=== PATIENT | female | born 1930 | race Caucasian/White ===

== ENCOUNTER 2016-11-06 13:30 | Inpatient (IN) | payer MEDICARE, OTHER ==
[~2016-11-06] VITALS: Ht 162.6 cm; Wt 44.0 kg
[~2016-11-06 13:30] MED LIST: ACET325T PO; BENA25CA2 PO; BUPR75TA PO; BUSP1TAB PO; CARV6.252 PO; CHOL100025 PO; DIVA250T PO; DONE10TA7 PO; FLOR250C PO; FOSA70TA PO; LISI2.5T3 PO; LORA-373 PO; LORA1TAB12 PO; NORC5TAB PO; OMEP20TA PO; PARO30TA2 PO; SIMV20TA PO; SYMB160A INH; VENTAER INH; ZOFR4TAB PO
[2016-11-06 13:53] VITALS: BP 192/104; PULSE 86; RESP 22; TEMP 97.7; O2SAT 95
--- NOTE | 2016-11-06 14:14 | PD ---
HPI Chief Complaint: Fall Time Seen by Provider: 14:14 Travel History International Travel<30 days: No Contact w/Intl Traveler<30days: No Traveled to known affect area: No History of Present Illness HPI 86-year-old female with a history of hypertension, COPD, hyperlipidemia, CAD, anxiety, depression is brought to the emergency department by EMS from her assisted living facility for evaluation of fall. Per EMS report the patient fell from the side of her bed hitting her head on the side table. Unsure if this was a witnessed fall. Staff reports no loss of consciousness. The patient states that she thinks that she tripped over something causing her to fall. The patient denies any loss of consciousness. She complains of a headache. Possibly aggravated by hitting her head on the table. Denies any relieving factors. She denies any lightheadedness, dizziness, nausea, vomiting , chest pain, shortness of breath, abdominal pain, numbness or tingling, weakness, neck pain, back pain. Denies anticoagulation. PCP is Dr. Paul. No other complaints. PFSH Past Medical History Arthritis: Yes Asthma: No Blood Disorders: No Anxiety: Yes Depression: Yes Cancer: No Cardiovascular Problems: Yes (htn on meds) High Cholesterol: Yes COPD: Yes Diabetes: No Diminished Hearing: No Endocrine: No Gastrointestinal Disorders: No Genitourinary: No Hypertension: Yes Immune Disorder: No Implanted Vascular Access Dvce: No Neurologic: Yes Psychiatric: Yes Reproductive: No Respiratory: Yes (COPD, SMOKER) Immunizations Current: Yes Sleep Apnea: No Tetanus Vaccination: Unknown ?: Not Menopausal: Yes Ovarian Cysts: Yes (RT OOPHERECTOMY FOR SAME) Past Surgical History Appendectomy: Yes Body Medical Devices: PLATES IN ANKLES Joint Replacement: Yes (BILAT HIP ) Pacemaker: No Other Surgery: Yes Social History Alcohol Use: No Tobacco Use: Yes (< 1/2 PPD) Substance Use: No Allergies-Medications (Allergen,Severity, Reaction): Coded Allergies: *MDRO Multi-Drug Resistant Organism (Verified Adverse Reaction, Unknown, 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) Reported Meds & Prescriptions Reported Meds & Active Scripts Active Reported Ensure (Nutritional Supplements) 1 Liq Liq 1 Can PO BID Bupropion HCl 75 Mg Tab 75 Mg PO DAILY Symbicort Inh (Budesonide/Formoterol Fumarate) 160-4.5 Mcg/Act Aero 2 Puff INH Q12HR Fosamax (Alendronate Sodium) 70 Mg Tab 70 Mg PO Q7D Vitamin D3 (Cholecalciferol) 1,000 Unit Chew 1,000 Units PO DAILY Simvastatin 20 Mg Tab 20 Mg PO HS Paroxetine (Paroxetine HCl) 30 Mg Tab 30 Mg PO DAILY Acetaminophen 325 Mg Tab 650 Mg PO Q6HR PRN Lorazepam 0.5 Mg Tab 0.5 Mg PO BID Zofran (Ondansetron HCl) 4 Mg Tab 4 Mg PO Q6HR PRN Ventolin Hfa 18 GM Inh (Albuterol Sulfate) 90 Mcg/Act Aer 1 Puff INH Q12HR PRN Omeprazole 20 Mg Tab 20 Mg PO DAILY [place] (Hydrocodone-Acetaminophen) 5-325 mg Tab 1 Tab PO Q4H PRN Lisinopril 2.5 Mg Tab 2.5 Mg PO DAILY Florastor (Saccharomyces Boulardii) 250 Mg Cap 250 Mg PO BID Donepezil 10 Mg Tab 10 Mg PO HS Benadryl (Diphenhydramine HCl) 25 Mg Cap 25 Mg PO Q6H PRN Divalproex DR (Divalproex Sodium) 250 Mg Tabdr 250 Mg PO Q8HR Buspirone (Buspirone HCl) 7.5 Mg Tab 7.5 Mg PO DAILY Lorazepam 1 Mg Tab 1 Mg PO Q8H PRN Carvedilol 6.25 Mg Tab 6.25 Mg PO BID Review of Systems Except as stated in HPI: all other systems reviewed are Neg Physical Exam Narrative GENERAL: Thin, frail elderly female in no acute distress. SKIN: Warm and dry. Skin tear to bilateral forearms and bilateral knees. HEAD: Normocephalic and atraumatic. There is a contusion to the right forehead. There is swelling and mild deformity noted at the nasal bridge. EYES: No injection, drainage, or hyphema noted. PERRLA. EOMI. ENT: Dried blood in the nasal cavities, but no septal hematoma. No nasal drainage noted. Oropharynx is clear. NECK: Supple and the trachea is midline. CARDIOVASCULAR: Regular rate and rhythm. RESPIRATORY: Breath sounds are equal bilaterally with no accessory muscle use, wheezing, rhonchi, or crackles. GASTROINTESTINAL: Abdomen is soft, non-tender, and nondistended. MUSCULOSKELETAL: No obvious deformities, swelling, cyanosis, or ecchymosis is present throughout the upper and lower extremities. Patient has full range of motion without any signs of neurovascular compromise. BACK: Nontender without any obvious deformities, bony point tenderness, or crepitus noted throughout the thoracic and lumbar vertebrae. NEUROLOGICAL: Awake, alert, and oriented. Normal speech and gait. Cranial nerves are grossly intact. Data Data Last Documented VS Vital Signs Date Time Temp Pulse Resp B/P Pulse Ox O2 Delivery O2 Flow Rate FiO2 11/06/16 13:56 86 95 Nasal Cannula 2 11/06/16 13:53 97.7 22 192/[address] Brain W/O Iv Contrast(Rout) (11/06/16 14:12) Ct Cerv Spine W/O Contrast (11/06/16 14:12) Ct Facial Bones W/O Iv Cont (11/06/16 14:12) Electrocardiogram (11/06/16 14:12) Complete Blood Count With Diff (11/06/16 14:12) Comprehensive Metabolic Panel (11/06/16 14:12) Drug Screen, Random Urine (11/06/16 14:12) Prothrombin Time / Inr (Pt) (11/06/16 14:12) Troponin I (11/06/16 14:12) Urinalysis - C+S If Indicated (11/06/16 14:12) Chest, Single Ap (11/06/16 14:12) Ecg Monitoring (11/06/16 14:12) Iv Access Insert/Monitor (11/06/16 14:12) Cath For Specimen (11/06/16 14:12) Oximetry (11/06/16 14:12) Sodium Chloride 0.9% Flush (Ns Flush) (11/06/16 14:15) Tetanus/Diphtheria Tox Adult (Tetanus/Di (11/06/16 15:30) Sodium Chlorid 0.9% 500 Ml Inj (Ns 500 M (11/06/16 15:30) Admit Order (Ed Use Only) (11/06/16 16:05) Labs Laboratory Tests Test 11/06/16 14:25 White Blood Count 14.8 TH/MM3 Red Blood Count 4.24 MIL/MM3 Hemoglobin 11.8 GM/DL Hematocrit 36.3 % Mean Corpuscular Volume 85.7 FL Mean Corpuscular Hemoglobin 27.8 PG Mean Corpuscular Hemoglobin 32.4 % Concent Red Cell Distribution Width 15.6 % Platelet Count 301 TH/MM3 Mean Platelet Volume 9.4 FL Neutrophils (%) (Auto) 84.9 % Lymphocytes (%) (Auto) 9.0 % Monocytes (%) (Auto) 4.7 % Eosinophils (%) (Auto) 1.2 % Basophils (%) (Auto) 0.2 % Neutrophils # (Auto) 12.6 TH/MM3 Lymphocytes # (Auto) 1.3 TH/MM3 Monocytes # (Auto) 0.7 TH/MM3 Eosinophils # (Auto) 0.2 TH/MM3 Basophils # (Auto) 0.0 TH/MM3 CBC Comment DIFF FINAL Differential Comment Prothrombin Time 11.8 SEC Prothromb Time International 1.1 RATIO Ratio Sodium Level 142 MEQ/L Potassium Level 4.4 MEQ/L Chloride Level 105 MEQ/L Carbon Dioxide Level 25.6 MEQ/L Anion Gap 11 MEQ/L Blood Urea Nitrogen 33 MG/DL Creatinine 1.10 MG/DL Estimat Glomerular Filtration 47 ML/MIN Rate Random Glucose 91 MG/DL Calcium Level 8.6 MG/DL Total Bilirubin 0.4 MG/DL Aspartate Amino Transf 11 U/L (AST/SGOT) Alanine Aminotransferase 9 U/L (ALT/SGPT) Alkaline Phosphatase 97 U/L Troponin I LESS THAN 0.02 NG/ML Total Protein 7.2 GM/DL Albumin 2.7 GM/DL [facility] Medical Decision Making Medical Screen Exam Complete: Yes Emergency Medical Condition: Yes Differential Diagnosis Intracranial hemorrhage versus cervical spine fracture versus minor head injury versus facial fracture versus UTI versus other Narrative Course 86-year-old female presents to the emergency room by EMS for evaluation of fall from her bed and hitting her head on the side table. Patient is afebrile. She is mildly hypertensive but vital signs are stable. No focal neurologic deficits. She does have a large contusion to her right forehead and swelling of her nasal bones. CT of the head, facial bones and cervical spine has been ordered and is pending. IV access is obtained, labs have been drawn and sent. I cleaned and dressed the patient's wounds with antibiotic ointment, Telfa and Aba. The 2 skin tears on her forearms were repaired using Steri-Strips and Dermabond. EKG shows normal sinus rhythm with no acute ST elevations or depressions, lateral ST changes likely secondary to LVH. CBC shows an elevated white blood cell count of 14.8. CMP shows mild renal insufficiency with an elevated creatinine of 1.10, GFR 47, BUN 33. Likely secondary to dehydration. This is an elevation from the patient 's baseline. Troponin is less than 0.02. Coags are unremarkable. CT of cervical spine is negative for any acute abnormalities. Head CT is negative for any acute abnormalities. Maxillofacial CT is negative for any acute abnormalities. Chest x-ray is negative for any acute abnormality. Patient has remained stable and without complaint while here in the emergency department. Her blood pressures come down 165/96. We have been unable to obtain a urine specimen, a catheter urine was performed but no urine was obtained as the patient had a wet brief and had urinated just prior to catheterization. Her labs reveal an acute kidney injury. She is quite weak and will need physical therapy evaluation and likely placement in a rehabilitation fpc facility. Patient will be admitted to medicine service. I discussed the case with my attending physician Dr. Ontiveros who is aware of the patients history, physical examination findings, and treatment plan. Physician Communication Physician Communication I spoke with Dr. Bishop [facility] who agrees to admit the patient to his service. Diagnosis Primary Impression: Acute kidney injury Additional Impressions: Weakness generalized Frequent falls Admitting Information Admitting Physician Requests: Admit Alta Patel Nov 06, 2016 14:14
[2016-11-06] MEDS ORDERED: SODIUM CHLORIDE 0.9% FLUSH 5 ML FLUSH IVF PRN (14:15)
[2016-11-06 14:37] LABS: AUTOMATED NEUTROPHIL # 12.6 TH/MM3 (1.8-7.7); BASOPHIL % 0.2 % (0.0-2.0); EOSINOPHIL # 0.2 TH/MM3 (0-0.4); EOSINOPHIL % 1.2 % (0.0-4.0); HEMATOCRIT 36.3 % (35.0-46.0); LYMPHOCYTE # 1.3 TH/MM3 (1.0-4.8); MEAN CELL VOLUME 85.7 FL (80.0-100.0); MEAN CORPUSCULAR HEMOGLOBIN 27.8 PG (27.0-34.0); MEAN CORPUSCULAR HGB CONC 32.4 % (32.0-36.0); MONO % 4.7 % (0.0-8.0); NEUT % 84.9 % (16.0-70.0); PLATELET COUNT 301 TH/MM3 (150-450); RED BLOOD COUNT 4.24 MIL/MM3 (4.00-5.30); RED CELL DISTRIBUTION WIDTH 15.6 % (11.6-17.2); WHITE BLOOD COUNT 14.8 TH/MM3 (4.0-11.0)
[2016-11-06 14:38] LABS: HEMO FLAGS DIFF FINAL
[2016-11-06 14:44] LABS: CHLORIDE 105 MEQ/L (98-107); POTASSIUM 4.4 MEQ/L (3.5-5.1); SODIUM (NA) 142 MEQ/L (136-145)
[2016-11-06 14:47] LABS: ANION GAP 11 MEQ/L (5-15); BICARBONATE 25.6 MEQ/L (21.0-32.0); BLOOD UREA NITROGEN 33 MG/DL (7-18)
[2016-11-06 14:48] LABS: INTERNATIONAL NORMALIZED RATIO 1.1 RATIO; PROTHROMBIN TIME - PATIENT 11.8 SEC (9.8-11.6)
[2016-11-06 14:50] LABS: ALT (GPT) 9 U/L (10-53); AST (GOT) 11 U/L (15-37); GLOMERULAR FILTRATION RATE 47 ML/MIN (>89)
[2016-11-06 14:52] LABS: TOTAL BILIRUBIN ADULT 0.4 MG/DL (0.2-1.0)
[2016-11-06 14:53] LABS: ALKALINE PHOSPHATASE 97 U/L (45-117)
[2016-11-06] MEDS ORDERED: ENSULIQ PO (14:58)
--- NOTE | 2016-11-06 15:19 | RADHPO ---
EXAM DATE/TIME: 11/06/2016 14:30 [facility] COMPARISON: CT BRAIN W/O CONTRAST, November 06, 2014, 13:35. INDICATIONS : Trauma. Fall. Forehead contusion. RADIATION DOSE: 26.83 CTDIvol (mGy) MEDICAL HISTORY : Cardiovascular disease. Chronic obstructive pulmonary disease. Hypertension. SURGICAL HISTORY : Appendectomy. ENCOUNTER: Initial ACUITY: 1 day PAIN SCALE: 2/10 LOCATION: cranial TECHNIQUE: Multiple contiguous axial images were obtained of the head. Using automated exposure control and adj ustment of the mA and/or kV according to patient size, radiation dose was kept as low as reasonably a chievable to obtain optimal diagnostic quality images. FINDINGS: CEREBRUM: The ventricles are normal for age. No evidence of midline shift, mass lesion, hemorrhage or acute in farction. No extra-axial fluid collections are seen. Stable remote hypodensity in the right basal ga nglia and knee of the internal capsule POSTERIOR FOSSA: The cerebellum and brainstem are intact. The 4th ventricle is midline. The cerebellopontine angle i s unremarkable. EXTRACRANIAL: The visualized portion of the orbits is intact. SKULL: The calvaria is intact. No evidence of skull fracture. Soft tissue swelling is appreciated superfici al calvarium in the right frontal region. Air-fluid in the right frontal sinus as well as opacificati on and mucosal thickening in anterior ethmoid air cells. CONCLUSION: Soft tissue swelling right frontal region with intact calvarium. Stable intracranial examination with no acute abnormality. Findings consistent with frontal and ethmoid sinus disease Keith Ortiz MD on November 06, 2016 at 15:15 Board Certified Radiologist. This report was verified electronically.
--- NOTE | 2016-11-06 15:20 | RADHPO ---
EXAM DATE/TIME: 11/06/2016 14:41 [facility] COMPARISON: CHEST SINGLE AP, April 23, 2016, 9:34. INDICATIONS : Snycope. Fall today MEDICAL HISTORY : Hypertension. Hypercholesterolemia. Chronic obstructive pulmonary disease. Smoker SURGICAL HISTORY : None. ENCOUNTER: Initial ACUITY: 1 day PAIN SCORE: 5/10 LOCATION: Bilateral chest FINDINGS: A single view of the chest demonstrates the lungs to be symmetrically aerated without evidence of mas s, infiltrate or effusion. The lungs are hyperaerated bilaterally. There is chronic interstitial serena nges bilaterally. The cardiomediastinal contours are unremarkable. Old stable fracture involving the proximal left humerus. There is an old left-sided rib fractures. The bony structures appear to be sta ble compared to the prior exam. CONCLUSION: No acute pulmonary infiltrates. Ruddy Hernandez MD on November 06, 2016 at 15:17 Board Certified Radiologist. This report was verified electronically.
--- NOTE | 2016-11-06 15:23 | RADHPO ---
EXAM DATE/TIME: 11/06/2016 14:30 [facility] COMPARISON: No previous studies available for comparison. INDICATIONS : Trauma. Fall. RADIATION DOSE: 26.68 CTDIvol (mGy) MEDICAL HISTORY : Chronic obstructive pulmonary disease. Cardiovascular disease Hypertension. SURGICAL HISTORY : Appendectomy. ENCOUNTER: Initial ACUITY: 1 day PAIN SCALE: 2/10 LOCATION: neck TECHNIQUE: Volumetric scanning of the cervical spine was performed. Multiplanar reconstructions in the sagittal, coronal and oblique axial planes were performed. Using automated exposure control and adjustment o f the mA and/or kV according to patient size, radiation dose was kept as low as reasonably achievable to obtain optimal diagnostic quality images. FINDINGS: Soft tissues reveal extensive vascular calcification in the carotid bulbs and initial segments of the internal carotid arteries. The bony structures are osteopenic and intact with normal alignment no fr acture, compression, subluxation, or destructive change. The odontoid is in the relation of the arch of C1 multilevel degenerative changes are noted disc disease C3-C7 inclusive of uncovertebral hypertr ophy and interspersed posterior lateral mass facet arthritic change. CONCLUSION: Extensive degenerative changes. No acute bony injury. Keith Ortiz MD on November 06, 2016 at 15:18 Board Certified Radiologist. This report was verified electronically.
--- NOTE | 2016-11-06 15:26 | RADHPO ---
EXAM DATE/TIME: 11/06/2016 14:30 [facility] COMPARISON: No previous studies available for comparison. INDICATIONS : Trauma. Fall. Facial abrasions. Nose pain. RADIATION DOSE: 11.44 CTDIvol (mGy) MEDICAL HISTORY : Chronic obstructive pulmonary disease. Cardiovascular disease Hypertension. SURGICAL HISTORY : Appendectomy. ENCOUNTER: Initial ACUITY: 1 day PAIN SCORE: 5/10 LOCATION: facial TECHNIQUE: Volumetric scanning of the facial bones was performed. Using automated exposure control and adjustme nt of the mA and/or kV according to patient size, radiation dose was kept as low as reasonably achiev able to obtain optimal diagnostic quality images. FINDINGS: ORBITS: The orbital and infraorbital osseous structures are intact. The retroconal structures have a normal configuration. No radiopaque foreign bodies are seen. NASAL BONE: The nasal bone and maxillary spine are intact ZYGOMATIC ARCHES: Symmetric without evidence of fracture. SINUSES: There is bilateral frontal and ethmoid sinus disease with mucoperiosteal thickening and/or opacificat ion.. NASAL CAVITY: The nasal septum is intact and midline. The lacrimal ducts are intact. SOFT TISSUES: No radiopaque foreign bodies seen. Soft tissue swelling is noted in the right frontal region. INTRACRANIAL: No intracranial air seen. CRIBIFORM PLATE: Grossly intact. CONCLUSION: Soft tissue swelling superficial right frontal for head region. No acute bony injury. Extensive bilat eral frontal and ethmoid sinus air cell disease. Keith Ortiz MD on November 06, 2016 at 15:22 Board Certified Radiologist. This report was verified electronically.
[2016-11-06] MEDS ORDERED: TETANUS/DIPHTHERIA TOXOID ADULT 0.5 ML VIAL IM ONE (15:30)
[2016-11-06] MEDS ORDERED: SODIUM CHLORID 0.9% 500 ML INJ 500 ML IV ONE (15:30)
[2016-11-06] MEDS ORDERED: SODIUM CHLOR 0.9% 1000 ML INJ 1,000 ML IV SCH (17:28)
[2016-11-06 17:56] VITALS: BP 178/79; PULSE 81; RESP 20; O2SAT 95
[2016-11-06] MEDS ORDERED: ONDANSETRON HCL 4 MG/2 ML VIAL IVP PRN (18:30)
[2016-11-06] MEDS ORDERED: MAGNESIUM HYDROXIDE SUSP 30 ML CUP PO PRN (18:30)
[2016-11-06] MEDS ORDERED: NALOXONE HCL 0.4 MG/ML AMP IV PRN (18:30)
[2016-11-06] MEDS: SODIUM CHLOR 0.9% 1000 ML INJ 1,000 ML IV SCH (18:33)
[2016-11-06 19:00] VITALS: O2SAT 95
[2016-11-06 19:45] VITALS: BP 178/89; PULSE 78; RESP 18; O2SAT 100
[2016-11-06 20:30] VITALS: BP 117/65; PULSE 72; RESP 22; TEMP 98.5; O2SAT 95
[2016-11-06] MEDS ORDERED: ACETAMINOPHEN 500 MG CPLT PO ONE (20:45)
[2016-11-06 22:05] VITALS: BP 115/57; PULSE 70; RESP 17; TEMP 96.6; O2SAT 100
[2016-11-07] VITALS (10 sets, daily range): BP systolic 81–129; BP diastolic 45–88; PULSE 64–84; RESP 18–20; TEMP 95.6–98.1; O2SAT 95–99
[2016-11-07 08:47] LABS: AUTOMATED NEUTROPHIL # 7.4 TH/MM3 (1.8-7.7); BASOPHIL % 0.3 % (0.0-2.0); EOSINOPHIL # 0.1 TH/MM3 (0-0.4); EOSINOPHIL % 0.7 % (0.0-4.0); HEMO FLAGS DIFF FINAL; LYMPHOCYTE # 1.2 TH/MM3 (1.0-4.8); MEAN CELL VOLUME 85.7 FL (80.0-100.0); MEAN CORPUSCULAR HEMOGLOBIN 26.9 PG (27.0-34.0); MEAN CORPUSCULAR HGB CONC 31.4 % (32.0-36.0); MONO % 7.5 % (0.0-8.0); NEUT % 78.5 % (16.0-70.0); PLATELET COUNT 197 TH/MM3 (150-450); RED BLOOD COUNT 3.74 MIL/MM3 (4.00-5.30); RED CELL DISTRIBUTION WIDTH 16.1 % (11.6-17.2); WHITE BLOOD COUNT 9.4 TH/MM3 (4.0-11.0)
[2016-11-07 09:13] LABS: BICARBONATE 23.1 MEQ/L (21.0-32.0); POTASSIUM 3.4 MEQ/L (3.5-5.1)
--- NOTE | 2016-11-07 11:05 | HHI.HP ---
[facility] Service [facility] Primary Care Physician Tootie Paul MD Admission Diagnosis ADALID, Weakness, Frequent Falls Diagnoses: (1) Frequent falls (2) Acute kidney injury (3) Leukocytosis (4) Benign hypertension (5) COPD (chronic obstructive pulmonary disease) (6) Hyperlipidemia Chief Complaint: fall Travel History International Travel<30 Days: No Contact w/Intl Traveler <30 Da: No Traveled to Known Affected Are: No History of Present Illness 86 year-old female with a history of hypertension, COPD, hyperlipidemia and a resident [facility] a local [facility] was brought yesterday to the ED by EMS for evaluation of fall unsure whether it was witnessed . Per EMS note, patient fell from decide offered bed hitting her head on that side. However, patient states she tripped over something causing her to fall. There was no loss of consciousness. Head CT and maxillofacial CT the ED revealed Soft tissue swelling superficial right frontal for head region and no other findings.Although on arrival patient complained of headaches, she denies any since this morning. 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) Family History Due to patient's advanced age, family history not relevant in this case Social History She is currently a [facility] at [facility] Alcohol Use: No Tobacco Use: Yes (< 1/2 PPD) Substance Use: No Physical Exam Vital Signs Vital Signs Date Time Temp Pulse Resp B/P Pulse Ox O2 Delivery O2 Flow Rate FiO2 11/07/16 08:00 95.6 73 18 128/60 96 11/07/16 04:00 96.7 70 20 124/88 99 11/07/16 00:23 96.4 70 20 81/45 99 11/06/16 22:05 96.6 70 17 115/57 100 11/06/16 20:30 98.5 72 22 117/65 95 Nasal Cannula 2 11/06/16 19:45 78 18 178/89 100 Nasal Cannula 2 11/06/16 19:00 95 Nasal Cannula 2.00 11/06/16 17:56 81 20 178/79 95 Nasal Cannula 2 11/06/16 17:56 95 Nasal Cannula 2 11/06/16 13:56 86 95 Nasal Cannula 2 11/06/16 13:53 97.7 86 22 192/104 95 Physical Exam GENERAL: This is a well-nourished, well-developed patient, in no apparent distress. SKIN: Multiple skin excoriation to bilateral arms, bilateral lower extremities HEAD: Atraumatic. Normocephalic. No temporal or scalp tenderness. EYES: Pupils equal round and reactive. Extraocular motions intact. No scleral icterus. No injection or drainage. ENT: Nose without bleeding, purulent drainage or septal hematoma. Throat without erythema, tonsillar hypertrophy or exudate. Uvula midline. Airway patent. NECK: Trachea midline. No JVD or lymphadenopathy. Supple, nontender, no meningeal signs. CARDIOVASCULAR: Regular rate and rhythm with II/ DAVID RESPIRATORY: Clear to auscultation. Breath sounds equal bilaterally. No wheezes , rales, or rhonchi. GASTROINTESTINAL: Abdomen soft, non-tender, nondistended. No hepato-splenomegaly , or palpable masses. No guarding. MUSCULOSKELETAL: Extremities without clubbing, cyanosis, or edema. No joint tenderness, effusion, or edema noted. No calf tenderness. Negative Homans sign bilaterally. NEUROLOGICAL: Awake and alert. Cranial nerves II through XII intact. Motor and sensory grossly within normal limits. Five out of 5 muscle strength in all muscle groups. Normal speech. Laboratory Laboratory Tests Test 11/06/16 11/07/16 14:25 08:12 White Blood Count 14.8 9.4 Red Blood Count 4.24 3.74 Hemoglobin 11.8 10.0 Hematocrit 36.3 32.0 Mean Corpuscular Volume 85.7 85.7 Mean Corpuscular Hemoglobin 27.8 26.9 Mean Corpuscular Hemoglobin 32.4 31.4 Concent Red Cell Distribution Width 15.6 16.1 Platelet Count 301 197 Mean Platelet Volume 9.4 9.2 Neutrophils (%) (Auto) 84.9 78.5 Lymphocytes (%) (Auto) 9.0 13.0 Monocytes (%) (Auto) 4.7 7.5 Eosinophils (%) (Auto) 1.2 0.7 Basophils (%) (Auto) 0.2 0.3 Neutrophils # (Auto) 12.6 7.4 Lymphocytes # (Auto) 1.3 1.2 Monocytes # (Auto) 0.7 0.7 Eosinophils # (Auto) 0.2 0.1 Basophils # (Auto) 0.0 0.0 CBC Comment DIFF FINAL DIFF FINAL Differential Comment Prothrombin Time 11.8 Prothromb Time International 1.1 Ratio Sodium Level 142 141 Potassium Level 4.4 3.4 Chloride Level 105 107 Carbon Dioxide Level 25.6 23.1 Anion Gap 11 11 Blood Urea Nitrogen 33 29 Creatinine 1.10 0.94 Estimat Glomerular Filtration 47 57 Rate Random Glucose 91 66 Calcium Level 8.6 8.0 Total Bilirubin 0.4 Aspartate Amino Transf 11 (AST/SGOT) Alanine Aminotransferase 9 (ALT/SGPT) Alkaline Phosphatase 97 Troponin I LESS THAN 0.02 Total Protein 7.2 Albumin 2.7 Result Diagram: 11/07/16 0812 11/07/16 0812 Imaging Last Impressions Maxillofacial CT 11/06/16 141 Signed Impressions: Service Date/Time: Sunday, November 06, 2016 14:30 - CONCLUSION: Soft tissue swelling superficial right frontal for head region. No acute bony injury. Extensive bilateral frontal and ethmoid sinus air cell disease. Keith Ortiz MD Head CT 11/06/16 141 Signed Impressions: Service Date/Time: Sunday, November 06, 2016 14:30 - CONCLUSION: Soft tissue swelling right frontal region with intact calvarium. Stable intracranial examination with no acute abnormality. Findings consistent with frontal and ethmoid sinus disease Keith Ortiz MD Chest X-Ray 11/06/16 141 Signed Impressions: Service Date/Time: Sunday, November 06, 2016 14:41 - CONCLUSION: No acute pulmonary infiltrates. Ruddy Hernandez MD Cervical Spine CT 11/06/16 141 Signed Impressions: Service Date/Time: Sunday, November 06, 2016 14:30 - CONCLUSION: Extensive degenerative changes. No acute bony injury. Keith Ortiz MD Assessment and Plan Problem List: (1) Frequent falls ICD Code: R29.6 Status: Acute (2) COPD (chronic obstructive pulmonary disease) ICD Code: J44.9 Status: Chronic (3) Benign hypertension ICD Code: I10 Status: Chronic (4) Leukocytosis ICD Code: D72.829 Status: Acute Assessment and Plan 86-year-old female with Multiple falls: Status post mechanical fall 11/06/16; head CT and maxillofacial CT noted and reviewed by me with finding of Soft tissue swelling superficial right frontal for head region otherwise unremarkable .Place for precaution. manager lvn consulted for arrangement to discharge to SNF as opposed to returning back to [facility] when medically stable. Check UA and treat accordingly. PT consult to treat and eval Leukocytosis: Chest x-ray noted and reviewed by me without any cardio pulmonary disease, will check UA and treat accordingly-now resolved Multiple scans excoriations: Currently afebrile we'll hold on starting antibiotics, continue wound care with bacitracin. Hypokalemia: Replace electrolyte and monitor Mild acute renal failure: Prerenal secondary to dehydration, resolved with gentle IV fluid hydration and monitor BUN and creatinine. History of COPD: No current exacerbation, resume Symbicort and starts DuoNeb when necessary and advise on tobacco cessation Hypertension: Resume home medication including Coreg and lisinopril with holding per meter Anxiety/depression: Resume outpatient medications Dementia: Resume Aricept DVT prophylaxis: Bilateral SCDs Code Status DO NOT RESUSCITATE Discussed Condition With Patient Physician Certification 2 Midnight Certification Type: Admission for Inpatient Services Order for Inpatient Services The services are ordered in accordance with Medicare regulations or non- Medicare payer requirements, as applicable. In the case of services not specified as inpatient-only, they are appropriately provided as inpatient services in accordance with the 2-midnight benchmark. Estimated LOS (days): 2 days is the estimated time the patient will need to remain in the hospital, assuming treatment plan goals are met and no additional complications. Post-Hospital Plan: Not yet determined Bruce Hernandez MD Nov 07, 2016 11:05
[2016-11-07] MEDS ORDERED: LORazepam 1 MG TAB PO PRN (11:15)
[2016-11-07] MEDS ORDERED: ENALAPRILAT 1.25 MG/ML VIAL IV PUSH PRN (11:15)
[2016-11-07] MEDS ORDERED: PILL SPLITTER OTHER PRN (11:45)
[2016-11-07] MEDS ORDERED: POTASSIUM CHLORIDE 25 MEQ EFFERVESCENT TAB PO ONE (11:45)
[2016-11-07] MEDS ORDERED: RESP: ALBUTEROL 2.5 MG/IPRATROPIUM 0.5 MG NEB (PRN) NEB (12:00)
[2016-11-07] MEDS: DIVALPROEX SODIUM DELAYED RELEASE 250 MG TAB PO SCH ×2 (13:18→21:47)
--- NOTE | 2016-11-07 13:53 | EKG ---
Date Performed: 11/06/2016 Time Performed: 15:00:50 PTAGE: 86 years EKG: Sinus rhythm Possible anteroseptal infarct - age undetermined Possible left ventricular hypertrophy Lateral ST ch anges are probably due to ventricular hypertrophy Since previous tracing, no significant change noted Abnormal ECG PREVIOUS TRACING : 04/21/2016 13.19 DOCTOR: Christi Gomez Interpretating Date/Time 11/07/2016 13:53:11
[2016-11-07] MEDS ORDERED: NON-FORMULARY DRUG (Saccharomyces Boulardii (Florastor) 250 MG) PO SCH (21:00)
[2016-11-07] MEDS: PRAVASTATIN SOD 40 MG TAB PO SCH (21:47)
[2016-11-07] MEDS: LACTOBACILLUS ACIDOPHILUS TAB PO SCH (21:47)
[2016-11-07] MEDS: CARVEDILOL 6.25 MG TAB PO SCH (21:47)
[2016-11-07] MEDS: DONEPEZIL HCL 5 MG TAB PO SCH (21:47)
[2016-11-07] MEDS: BUDESONIDE-FORMOTEROL 160/4.5 MCG INHALER INH SCH (21:50)
[2016-11-08] VITALS (9 sets, daily range): BP systolic 108–145; BP diastolic 55–75; PULSE 62–80; RESP 18–21; TEMP 96.5–98.8; O2SAT 93–99
[2016-11-08] MEDS: DIVALPROEX SODIUM DELAYED RELEASE 250 MG TAB PO SCH ×3 (06:04→21:47)
[2016-11-08 08:48] LABS: BICARBONATE 27.4 MEQ/L (21.0-32.0); POTASSIUM 3.7 MEQ/L (3.5-5.1)
[2016-11-08] MEDS: BUDESONIDE-FORMOTEROL 160/4.5 MCG INHALER INH SCH ×2 (09:00→21:48)
[2016-11-08] MEDS: PANTOPRAZOLE SOD 20 MG DELAYED RELEASE TAB PO SCH (09:34)
[2016-11-08] MEDS: LACTOBACILLUS ACIDOPHILUS TAB PO SCH ×2 (09:34→21:47)
[2016-11-08] MEDS: CARVEDILOL 6.25 MG TAB PO SCH ×2 (09:34→21:46)
[2016-11-08] MEDS: LISINOPRIL 5 MG TAB PO SCH (09:35)
[2016-11-08] MEDS: busPIRone HCL 5 MG TAB PO SCH (09:35)
[2016-11-08] MEDS: buPROPion HCL 75 MG TAB PO SCH (09:35)
[2016-11-08] MEDS: PARoxetine HCL 20 MG TAB PO SCH (09:36)
[2016-11-08] MEDS: ACETAMINOPHEN 325 MG TAB PO PRN ×2 (09:40→22:00)
--- NOTE | 2016-11-08 09:40 | HHI.PR ---
Subjective Remarks Follow out multiple falls 11/08/16-patient seen and examined, very pleasant alert and oriented 2 no acute event overnight. Objective Vitals Vital Signs Date Time Temp Pulse Resp B/P Pulse Ox O2 Delivery O2 Flow Rate FiO2 11/08/16 08:52 99 Nasal Cannula 2.00 11/08/16 08:32 97.0 68 18 145/70 96 11/08/16 07:00 70 11/08/16 05:45 97.9 80 21 128/75 96 11/08/16 04:23 96 Nasal Cannula 2.00 11/08/16 00:45 98.8 64 20 120/68 95 11/07/16 20:30 98.1 84 20 122/71 95 11/07/16 20:00 77 11/07/16 18:02 96 Nasal Cannula 2.00 11/07/16 16:00 97.7 73 18 128/76 11/07/16 12:00 96.5 68 18 129/69 96 11/07/16 11:36 96 Nasal Cannula 2.00 I/O 11/07/16 11/07/16 11/07/16 11/08/16 11/08/16 11/08/16 07:00 15:00 23:00 07:00 15:00 23:00 Intake Total 240 ml 500 ml 150 ml Balance 240 ml 500 ml 150 ml Intake Oral 240 ml 500 ml 150 ml # Voids 1 1 2 3 # Bowel Movements 0 0 0 Result Diagram: 11/07/16 0812 11/08/16 0715 Imaging Last Impressions Maxillofacial CT 11/06/16 1412 Signed Impressions: Service Date/Time: Sunday, November 06, 2016 14:30 - CONCLUSION: Soft tissue swelling superficial right frontal for head region. No acute bony injury. Extensive bilateral frontal and ethmoid sinus air cell disease. Keith Ortiz MD Head CT 11/06/16 1412 Signed Impressions: Service Date/Time: Sunday, November 06, 2016 14:30 - CONCLUSION: Soft tissue swelling right frontal region with intact calvarium. Stable intracranial examination with no acute abnormality. Findings consistent with frontal and ethmoid sinus disease Keith Ortiz MD Chest X-Ray 11/06/16 1412 Signed Impressions: Service Date/Time: Sunday, November 06, 2016 14:41 - CONCLUSION: No acute pulmonary infiltrates. Ruddy Hernandez MD Cervical Spine CT 11/06/16 1412 Signed Impressions: Service Date/Time: Sunday, November 06, 2016 14:30 - CONCLUSION: Extensive degenerative changes. No acute bony injury. Keith Ortiz MD Objective Remarks GENERAL: NAD SKIN: Multiple skin excoriations/lacerations to upper or lower extremities HEAD: Normocephalic. EYES: No scleral icterus. No injection or drainage. NECK: Supple, trachea midline. No JVD or lymphadenopathy. CARDIOVASCULAR: Regular rate and rhythm without murmurs, gallops, or rubs. RESPIRATORY: Breath sounds equal bilaterally. No accessory muscle use. GASTROINTESTINAL: Abdomen soft, non-tender, nondistended. MUSCULOSKELETAL: No cyanosis, or edema. BACK: Nontender without obvious deformity. No CVA tenderness. A/P Problem List: (1) Frequent falls ICD Code: R29.6 Status: Acute (2) Acute kidney injury ICD Code: N17.9 Status: Resolved (3) Leukocytosis ICD Code: D72.829 Status: Acute (4) Benign hypertension ICD Code: I10 Status: Chronic (5) COPD (chronic obstructive pulmonary disease) ICD Code: J44.9 Status: Chronic (6) Hyperlipidemia ICD Code: E78.5 Status: Chronic Assessment and Plan 86-year-old female with Multiple falls: Status post mechanical fall 11/06/16; head CT and maxillofacial CT noted and reviewed by me with finding of Soft tissue swelling superficial right frontal for head region otherwise unremarkable .Place for precaution. stakeholder manager consulted for arrangement to discharge to SNF as opposed to returning back to [facility] when medically stable. UA pending and treat accordingly. PT consult to treat and eval Leukocytosis: Chest x-ray noted and reviewed by me without any cardio pulmonary disease, UA pending and treat accordingly-now resolved Multiple scans excoriations: Currently afebrile we'll hold on starting antibiotics, continue wound care with bacitracin. Hypokalemia: Replace electrolyte and monitor Mild acute renal failure: Prerenal secondary to dehydration, resolved with gentle IV fluid hydration and monitor BUN and creatinine. Hep-Lock IV fluid now History of COPD: No current exacerbation, continue Symbicort and DuoNeb when necessary and advise on tobacco cessation Hypertension: Continue home medication including Coreg and lisinopril with holding per meter Anxiety/depression: Continue outpatient medications Dementia: On Aricept DVT prophylaxis: Bilateral SCDs Bruce Hernandez MD Nov 08, 2016 09:40
[2016-11-08] MEDS: BACITRACIN TOP OINT 15 GM TUBE TOP SCH (21:47)
[2016-11-08] MEDS: PRAVASTATIN SOD 40 MG TAB PO SCH (21:47)
[2016-11-08] MEDS: DONEPEZIL HCL 5 MG TAB PO SCH (21:47)
[2016-11-09] VITALS: BP 110/67; PULSE 100; RESP 20; TEMP 98.8; O2SAT 94
[2016-11-09 05:20] VITALS: BP 110/70; PULSE 89; RESP 20; TEMP 98.3; O2SAT 95
[2016-11-09] MEDS: DIVALPROEX SODIUM DELAYED RELEASE 250 MG TAB PO SCH ×2 (06:36→14:47)
[2016-11-09 08:00] VITALS: BP 136/69; PULSE 63; RESP 20; TEMP 96.9; O2SAT 94
--- NOTE | 2016-11-09 08:47 | HHI.PR ---
Subjective Remarks Follow up multiple falls 11/08/16-patient seen and examined, very pleasant alert and oriented 2 no acute event overnight. 11/09/16-patient seen and examined. Stable, no acute event overnight. Afebrile. Case discussed with manager case management regarding discharge disposition. global regulatory affairs manager attempted to speak to patient POA however unable to reach Objective Vitals Vital Signs Date Time Temp Pulse Resp B/P Pulse Ox O2 Delivery O2 Flow Rate FiO2 11/09/16 08:00 96.9 63 20 136/69 94 11/09/16 05:20 98.3 89 20 110/70 95 11/09/16 00:00 98.8 100 20 110/67 94 11/08/16 20:00 97.4 74 19 108/55 93 11/08/16 20:00 79 11/08/16 16:00 96.9 64 18 126/64 96 11/08/16 12:45 96.5 62 18 122/63 95 11/08/16 08:52 99 Nasal Cannula 2.00 I/O 11/08/16 11/08/16 11/08/16 11/09/16 11/09/16 11/09/16 07:00 15:00 23:00 07:00 15:00 23:00 Intake Total 150 ml 240 ml 0 ml 100 ml Balance 150 ml 240 ml 0 ml 100 ml Intake Oral 150 ml 240 ml 0 ml 100 ml # Voids 3 2 1 2 # Bowel Movements 0 0 0 Result Diagram: 11/07/16 0812 11/08/16 0715 Imaging Last Impressions Maxillofacial CT 11/06/16 1412 Signed Impressions: Service Date/Time: Sunday, November 06, 2016 14:30 - CONCLUSION: Soft tissue swelling superficial right frontal for head region. No acute bony injury. Extensive bilateral frontal and ethmoid sinus air cell disease. Keith Ortiz MD Head CT 11/06/16 1412 Signed Impressions: Service Date/Time: Sunday, November 06, 2016 14:30 - CONCLUSION: Soft tissue swelling right frontal region with intact calvarium. Stable intracranial examination with no acute abnormality. Findings consistent with frontal and ethmoid sinus disease Keith Ortiz MD Chest X-Ray 11/06/16 1412 Signed Impressions: Service Date/Time: Sunday, November 06, 2016 14:41 - CONCLUSION: No acute pulmonary infiltrates. Ruddy Hernandez MD Cervical Spine CT 11/06/16 1412 Signed Impressions: Service Date/Time: Sunday, November 06, 2016 14:30 - CONCLUSION: Extensive degenerative changes. No acute bony injury. Keith Ortiz MD Objective Remarks GENERAL: NAD SKIN: Multiple skin excoriations/lacerations to upper or lower extremities HEAD: Normocephalic. EYES: No scleral icterus. No injection or drainage. NECK: Supple, trachea midline. No JVD or lymphadenopathy. CARDIOVASCULAR: Regular rate and rhythm without murmurs, gallops, or rubs. RESPIRATORY: Breath sounds equal bilaterally. No accessory muscle use. GASTROINTESTINAL: Abdomen soft, non-tender, nondistended. MUSCULOSKELETAL: No cyanosis, or edema. BACK: Nontender without obvious deformity. No CVA tenderness. Procedures None A/P Problem List: (1) Frequent falls ICD Code: R29.6 Status: Chronic (2) Acute kidney injury ICD Code: N17.9 Status: Resolved (3) Leukocytosis ICD Code: D72.829 Status: Resolved (4) Benign hypertension ICD Code: I10 Status: Chronic (5) COPD (chronic obstructive pulmonary disease) ICD Code: J44.9 Status: Chronic (6) Hyperlipidemia ICD Code: E78.5 Status: Chronic Assessment and Plan 86-year-old female with Multiple falls: Status post mechanical fall 11/06/16; head CT and maxillofacial CT noted and reviewed by me with finding of Soft tissue swelling superficial right frontal for head region otherwise unremarkable .Place for precaution. global regulatory affairs manager consulted for arrangement to discharge to SNF . PT consult to treat and eval Leukocytosis: Resolved Multiple scans excoriations: Currently afebrile we'll hold on starting antibiotics, continue wound care with bacitracin. Hypokalemia: Resolved status post replacement Mild acute renal failure: Prerenal secondary to dehydration, resolved with gentle IV fluid hydration and monitor BUN and creatinine. History of COPD: No current exacerbation, continue Symbicort and DuoNeb when necessary and advise on tobacco cessation Hypertension: Continue home medication including Coreg and lisinopril with holding per meter Anxiety/depression: Continue outpatient medications Dementia: On Aricept DVT prophylaxis: Bilateral SCDs Bruce Hernandez MD Nov 09, 2016 08:47
[2016-11-09] MEDS: PARoxetine HCL 20 MG TAB PO SCH (09:27)
[2016-11-09] MEDS: PANTOPRAZOLE SOD 20 MG DELAYED RELEASE TAB PO SCH (09:27)
[2016-11-09] MEDS: LACTOBACILLUS ACIDOPHILUS TAB PO SCH (09:27)
[2016-11-09] MEDS: CARVEDILOL 6.25 MG TAB PO SCH (09:28)
[2016-11-09] MEDS: busPIRone HCL 5 MG TAB PO SCH (09:28)
[2016-11-09] MEDS: LISINOPRIL 5 MG TAB PO SCH (09:28)
[2016-11-09] MEDS: buPROPion HCL 75 MG TAB PO SCH (09:28)
[2016-11-09] MEDS: BACITRACIN TOP OINT 15 GM TUBE TOP SCH (09:29)
[2016-11-09] MEDS: BUDESONIDE-FORMOTEROL 160/4.5 MCG INHALER INH SCH (09:29)
[2016-11-09 11:59] VITALS: PULSE 59
[2016-11-09] MEDS ORDERED: LORA-474 PO (12:10)
[2016-11-09] MEDS ORDERED: BACI500O2 TOP (12:12)
--- NOTE | 2016-11-09 12:15 | HHI.DS ---
Discharge Summary Admission Date Nov 06, 2016 at 16:07 Discharge Date: Nov 09, 2016 Admitting Diagnosis ADALID, Weakness, Frequent Falls (1) Frequent falls ICD Code: R29.6 (2) Acute kidney injury ICD Code: N17.9 (3) Leukocytosis ICD Code: D72.829 (4) Benign hypertension ICD Code: I10 (5) COPD (chronic obstructive pulmonary disease) ICD Code: J44.9 (6) Hyperlipidemia ICD Code: E78.5 Procedures None Brief History - From Admission 86 year-old female with a history of hypertension, COPD, hyperlipidemia and a resident of a local [facility] was brought yesterday to the ED by EMS for evaluation of fall unsure whether it was witnessed . Per EMS note, patient fell from decide offered bed hitting her head on that side. However, patient states she tripped over something causing her to fall. There was no loss of consciousness. Head CT and maxillofacial CT the ED revealed Soft tissue swelling superficial right frontal for head region and no other findings.Although on arrival patient complained of headaches, she denies any since this morning. There was no GI bleeds and she denies any chest pain or shortness of breath CBC/BMP: 11/07/16 0812 11/08/16 0715 Significant Findings Laboratory Tests Test 11/06/16 11/07/16 11/08/16 14:25 08:12 07:15 Prothrombin Time 11.8 SEC (9.8-11.6) Blood Urea Nitrogen 33 MG/DL (7-18) 29 MG/DL (7-18) 21 MG/DL (7-18) Creatinine 1.10 MG/DL (0.50-1.00) Estimat Glomerular Filtration 47 ML/MIN (>89) 57 ML/MIN (>89) 64 ML/MIN (>89) Rate Aspartate Amino Transf 11 U/L (15-37) (AST/SGOT) Alanine Aminotransferase 9 U/L (10-53) (ALT/SGPT) Troponin I LESS THAN 0.02 NG/ML (0.02-0.05) Albumin 2.7 GM/DL (3.4-5.0) White Blood Count 14.8 TH/MM3 (4.0-11.0) Neutrophils (%) (Auto) 84.9 % 78.5 % (16.0-70.0) (16.0-70.0) Neutrophils # (Auto) 12.6 TH/MM3 (1.8-7.7) Red Blood Count 3.74 MIL/MM3 (4.00-5.30) Hemoglobin 10.0 GM/DL (11.6-15.3) Hematocrit 32.0 % (35.0-46.0) Mean Corpuscular Hemoglobin 26.9 PG (27.0-34.0) Mean Corpuscular Hemoglobin 31.4 % Concent (32.0-36.0) Potassium Level 3.4 MEQ/L (3.5-5.1) Random Glucose 66 MG/DL (74-106) Calcium Level 8.0 MG/DL (8.5-10.1) Imaging Last Impressions Maxillofacial CT 11/06/161411 Signed Impressions: Service Date/Time: Sunday, November 06, 2016 14:30 - CONCLUSION: Soft tissue swelling superficial right frontal for head region. No acute bony injury. Extensive bilateral frontal and ethmoid sinus air cell disease. Keith Ortiz MD Head CT 11/06/161411 Signed Impressions: Service Date/Time: Sunday, November 06, 2016 14:30 - CONCLUSION: Soft tissue swelling right frontal region with intact calvarium. Stable intracranial examination with no acute abnormality. Findings consistent with frontal and ethmoid sinus disease Keith Ortiz MD Chest X-Ray 11/06/161411 Signed Impressions: Service Date/Time: Sunday, November 06, 2016 14:41 - CONCLUSION: No acute pulmonary infiltrates. Ruddy Hernandez MD Cervical Spine CT 11/06/161411 Signed Impressions: Service Date/Time: Sunday, November 06, 2016 14:30 - CONCLUSION: Extensive degenerative changes. No acute bony injury. Keith Ortiz MD PE at Discharge GENERAL: NAD SKIN: Multiple skin excoriations/lacerations to upper or lower extremities HEAD: Normocephalic. EYES: No scleral icterus. No injection or drainage. NECK: Supple, trachea midline. No JVD or lymphadenopathy. CARDIOVASCULAR: Regular rate and rhythm without murmurs, gallops, or rubs. RESPIRATORY: Breath sounds equal bilaterally. No accessory muscle use. GASTROINTESTINAL: Abdomen soft, non-tender, nondistended. MUSCULOSKELETAL: No cyanosis, or edema. BACK: Nontender without obvious deformity. No CVA tenderness. Hospital Course Patient was admitted secondary to mechanical fall and all radiographic studies were negative for any fractures. She was placed on fall precaution with consultation to physical therapy. She had mild acute renal failure for which she was started on gentle IV fluid hydration with monitoring of BUN and creatinine which subsequently resolved and IVF was discontinued. All electrolyte abnormalities including hypokalemia we'll replace accordingly. Her medication for other chronic medical conditions including COPD, dementia, anxiety/depression and hypertension were resumed. DVT and GI prophylaxis were provided. Patient's condition improved and vitals remained stable prior to discharge. Pt Condition on Discharge: Stable Discharge Disposition: Discharge to SNF Discharge Time: > 30 minutes Discharge Instructions DIET: Follow Instructions for: Heart Healthy Diet Activities you can perform: Regular-No Restrictions Follow up Referrals: PCP Follow-up - 2-3 Days New Medications: Bacitracin Topical (Bacitracin Topical) 500 Unit/Gm Oint 1 APPLIC TOP Q12HR Infection #1 TUBE Lorazepam (Ativan) 1 Mg Tab 1 MG PO Q8H PRN ANXIETY #10 TAB Continued Medications: Acetaminophen (Acetaminophen) 325 Mg Tab 650 MG PO Q6HR PRN PAIN SCALE 1 TO 5 TAB Albuterol 18 GM Inh (Ventolin Hfa 18 GM Inh) 90 Mcg/Act Aer 1 PUFF INH Q12HR PRN SHORTNESS OF BREATH #1 Ref 0 INHALER Alendronate (Fosamax) 70 Mg Tab 70 MG PO Q7D Osteoporosis Treatment #4 Ref 0 TAB Budesonide-Formoterol Inh (Symbicort Inh) 160-4.5 Mcg/Act Aero 2 PUFF INH Q12HR #1 Ref 0 INHALER Bupropion HCl (Bupropion HCl) 75 Mg Tab 75 MG PO DAILY Control Depression Ref 0 TAB Buspirone (Buspirone) 7.5 Mg Tab 7.5 MG PO DAILY Anxiety Ref 0 TAB Carvedilol (Carvedilol) 6.25 Mg Tab 6.25 MG PO BID #60 Ref 0 TAB Cholecalciferol (Vitamin D3) 1,000 Unit Chew 1000 UNITS PO DAILY Nutritional Supplement #1 Ref [address] (Divalproex DR) 250 Mg Tabdr 250 MG PO Q8HR Control Seizures #60 Ref 0 TAB Donepezil (Donepezil) 10 Mg Tab 10 MG PO HS Dementia #30 Ref 0 TAB Lisinopril (Lisinopril) 2.5 Mg Tab 2.5 MG PO DAILY #30 Ref 0 TAB Nutritional Supplements (Ensure) 1 Liq Liq 1 CAN PO BID Omeprazole (Omeprazole) 20 Mg Tab 20 MG PO DAILY #30 Ref 0 TAB Paroxetine (Paroxetine) 30 Mg Tab 30 MG PO DAILY #30 Ref 0 TAB Saccharomyces Boulardii (Florastor) 250 Mg Cap 250 MG PO BID Nutritional Supplement Ref 0 CAP Simvastatin (Simvastatin) 20 Mg Tab 20 MG PO HS Cholesterol Management #30 Ref 0 TAB Discontinued Medications: Diphenhydramine (Benadryl) 25 Mg Cap 25 MG PO Q6H PRN ALLERGIES Ref 0 CAP Hydrocodone-Acetaminophen ([place]) 5-325 mg Tab 1 TAB PO Q4H PRN PAIN Ref 0 TAB Lorazepam (Lorazepam) 1 Mg Tab 1 MG PO Q8H PRN ANXIETY Ref 0 TAB Lorazepam (Lorazepam) 0.5 Mg Tab 0.5 MG PO BID ANXIETY Ref 0 TAB Ondansetron (Zofran) 4 Mg Tab 4 MG PO Q6HR PRN NAUSEA OR VOMITING Ref 0 TAB Bruce Hernandez MD Nov 09, 2016 12:15
[2016-11-09 12:20] VITALS: BP 110/57; PULSE 63; RESP 19; TEMP 97.7; O2SAT 93
[2016-11-09] MEDS: SODIUM CHLOR 0.9% 1000 ML INJ 1,000 ML IV SCH (15:11)
== END 2016-11-09 15:26 | DRG 684 ==
LOC: PHEFT 13:30 → PHEDA 16:07 → N05A 21:41
PROVIDERS: ADMIT Hospitalist; ATTEND Hospitalist
DX: N17.9 Acute kidney failure, unspecified (principal); J44.9 Chronic obstructive pulmonary disease, unspecified; F03.90 Unspecified dementia, unspecified severity, without behavioral disturbance, psychotic disturbance, mood disturbance, and anxiety; S00.83XA Contusion of other part of head, initial encounter; I10 Essential (primary) hypertension; D72.829 Elevated white blood cell count, unspecified; E86.0 Dehydration; R29.6 Repeated falls; W01.190A Fall on same level from slipping, tripping and stumbling with subsequent striking against furniture, initial encounter; Y93.89 Activity, other specified; Y92.092 Bedroom in other non-institutional residence as the place of occurrence of the external cause; F32.9 Major depressive disorder, single episode, unspecified; F41.9 Anxiety disorder, unspecified; E78.00 Pure hypercholesterolemia, unspecified; M19.90 Unspecified osteoarthritis, unspecified site; F17.210 Nicotine dependence, cigarettes, uncomplicated; I25.10 Atherosclerotic heart disease of native coronary artery without angina pectoris; Z96.643 Presence of artificial hip joint, bilateral; Z96.653 Presence of artificial knee joint, bilateral; Z66 Do not resuscitate; E78.5 Hyperlipidemia, unspecified; E87.6 Hypokalemia
CPT/HCPCS: 70450; 70486; 71010; 72125; 80048; 80053; 84484; 85025; 85610; 90471; 90714; 93005; 96360; J7030; J7040

== ENCOUNTER 2016-11-29 09:53 | Inpatient (IN) | payer MEDICARE, OTHER ==
[~2016-11-29] VITALS: Ht 167.6 cm; Wt 45.0 kg
[2016-11-29] VITALS (25 sets, daily range): BP systolic 90–152; BP diastolic 43–79; PULSE 72–92; RESP 16–36; TEMP 97.8–99.7; O2SAT 95–100
[~2016-11-29 09:53] MED LIST changes: +BACI500O2 TOP; -BENA25CA2 PO; +ENSULIQ PO; -LORA-373 PO; +LORA-474 PO; -LORA1TAB12 PO; -NORC5TAB PO; -ZOFR4TAB PO
[2016-11-29] MEDS ORDERED: NALOXONE HCL 2 MG/2 ML VIAL IV PUSH ONE (10:00)
[2016-11-29 10:01] LABS: BLOOD GAS BASE EXCESS 2.9 mmol/L (-2-2); BLOOD GAS CARBOXYHEMOGLOBIN 1.6 % (0-4); BLOOD GAS HCO3 29 mmol/L (22-26); BLOOD GAS METHEMOGLOBIN 1.2 % (0-2); BLOOD GAS O2 HGB SATURATION 96 % (90-100); BLOOD GAS PCO2 62 mmHG (38-42); BLOOD GAS PO2 108 mmHG (61-120); BLOOD GAS TOTAL HGB 10.3 G/DL (12.0-16.0); CRITICAL VALUE YES; DRAW SITE RT RADIAL; LITER FLOW 15 L/M; NUMBER OF ARTERIAL PUNCTURES 1; OXYGEN DEVICE NRB MASK; STAT YES; TEMP CORR TO 98.6; ULNAR PULSE PRESENT
[2016-11-29] MEDS ORDERED: methylPREDNISolone SOD SUCC 125 MG/2 ML VIAL IVP ONE (10:15)
[2016-11-29] MEDS ORDERED: SODIUM CHLOR 0.9% 1000 ML INJ 1,000 ML IV SCH ×2 (10:15→13:15)
[2016-11-29] MEDS ORDERED: VANCOMYCIN INJ 1,000 MG in SODIUM CHLOR 0.9% 250 ML INJ 250 ML IV ONE (10:30)
[2016-11-29] MEDS ORDERED: PIPERACIL-TAZO 4.5 GM PREMIX 100 ML IV ONE (10:30)
--- NOTE | 2016-11-29 10:31 | RADHPO ---
EXAM DATE/TIME: 11/29/2016 10:07 [facility] COMPARISON: CHEST SINGLE AP, November 06, 2016, 14:41. INDICATIONS : Short of breath MEDICAL HISTORY : Chronic obstructive pulmonary disease. SURGICAL HISTORY : None. ENCOUNTER: Initial ACUITY: 1 day PAIN SCORE: Non-responsive. LOCATION: Bilateral chest FINDINGS: 2 AP views of the chest demonstrate normal-sized cardiac silhouette with leftward shift of the medias tinum. There is opacity at the left lung base obscuring the left hemidiaphragm. There is stable biapi dani pleural-parenchymal scar. Right lung is hyperexpanded. Patient is rotated. There is a chronic unu nited left proximal humerus fracture. Otherwise, no acute osseous abnormality is seen. There is decre ased vertebral body height of one of the midthoracic vertebral bodies. CONCLUSION: Interval development of left lung volume loss with nonspecific left basilar opacity that could repres ent atelectasis, consolidation, and/or effusion. Masoud Thomas MD on November 29, 2016 at 10:28 Board Certified Radiologist. This report was verified electronically.
[2016-11-29] MEDS: RESP: ALBUTEROL 2.5 MG/IPRATROPIUM 0.5 MG NEB (SCH) INH ×4 (10:36→22:59)
[2016-11-29 10:58] LABS: AUTOMATED NEUTROPHIL # 14.4 TH/MM3 (1.8-7.7); BASOPHIL % 0.2 % (0.0-2.0); EOSINOPHIL # 0.1 TH/MM3 (0-0.4); EOSINOPHIL % 0.6 % (0.0-4.0); LYMPH % 5.9 % (9.0-44.0); MEAN CELL VOLUME 85.5 FL (80.0-100.0); MEAN CORPUSCULAR HEMOGLOBIN 27.7 PG (27.0-34.0); MEAN CORPUSCULAR HGB CONC 32.4 % (32.0-36.0); MONO % 11.8 % (0.0-8.0); NEUT % 81.5 % (16.0-70.0); PLATELET COUNT 392 TH/MM3 (150-450); RED BLOOD COUNT 3.75 MIL/MM3 (4.00-5.30); RED CELL DISTRIBUTION WIDTH 14.9 % (11.6-17.2); WHITE BLOOD COUNT 17.6 TH/MM3 (4.0-11.0)
[2016-11-29 11:00] LABS: HEMO FLAGS DIFF FINAL
[2016-11-29 11:09] LABS: CHLORIDE 101 MEQ/L (98-107); POTASSIUM 4.6 MEQ/L (3.5-5.1); SODIUM (NA) 140 MEQ/L (136-145)
[2016-11-29 11:12] LABS: INTERNATIONAL NORMALIZED RATIO 1.1 RATIO; PROTHROMBIN TIME - PATIENT 11.8 SEC (9.8-11.6)
[2016-11-29 11:13] LABS: ANION GAP 8 MEQ/L (5-15); BICARBONATE 31.4 MEQ/L (21.0-32.0); BLOOD UREA NITROGEN 29 MG/DL (7-18)
--- NOTE | 2016-11-29 11:13 | PD ---
HPI Chief Complaint: Respiratory Symptoms Time Seen by Provider: 09:58 Travel History International Travel<30 days: No Contact w/Intl Traveler<30days: No Traveled to known affect area: No History of Present Illness HPI 86-year-old woman, brought in from [facility] and rehabilitation by [facility] for altered mental status. They report that she was found confused. He reports she had pinpoint pupils and they were worried she may have overdosed. They gave 0.4 Narcan. Patient is not on any opiates according to her Ander. Minimal improvement. I spoke with her power of civil attorney, Eryn Flynt [phone], reports that she 's been feeling worse over the past several days. 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) Reported Meds & Prescriptions Reported Meds & Active Scripts Active Bacitracin Topical 500 Unit/Gm Oint 1 Applic TOP Q12HR Ativan (Lorazepam) 1 Mg Tab 1 Mg PO Q8H PRN Reported Ensure (Nutritional Supplements) 1 Liq Liq 1 Can PO BID Bupropion HCl 75 Mg Tab 75 Mg PO DAILY Symbicort Inh (Budesonide/Formoterol Fumarate) 160-4.5 Mcg/Act Aero 2 Puff INH Q12HR Fosamax (Alendronate Sodium) 70 Mg Tab 70 Mg PO Q7D Vitamin D3 (Cholecalciferol) 1,000 Unit Chew 1,000 Units PO DAILY Simvastatin 20 Mg Tab 20 Mg PO HS Paroxetine (Paroxetine HCl) 30 Mg Tab 30 Mg PO DAILY Acetaminophen 325 Mg Tab 650 Mg PO Q6HR PRN Ventolin Hfa 18 GM Inh (Albuterol Sulfate) 90 Mcg/Act Aer 1 Puff INH Q12HR PRN Omeprazole 20 Mg Tab 20 Mg PO DAILY Lisinopril 2.5 Mg Tab 2.5 Mg PO DAILY Florastor (Saccharomyces Boulardii) 250 Mg Cap 250 Mg PO BID Donepezil 10 Mg Tab 10 Mg PO HS Divalproex DR (Divalproex Sodium) 250 Mg Tabdr 250 Mg PO Q8HR Buspirone (Buspirone HCl) 7.5 Mg Tab 7.5 Mg PO DAILY Carvedilol 6.25 Mg Tab 6.25 Mg PO BID Review of Systems ROS Limitations: Clinical Condition Physical Exam Narrative GENERAL: Ill-appearing 86-year-old woman, sluggishly responsive. SKIN: Warm and dry. HEAD: Atraumatic. Normocephalic. EYES: Pupils equal and round. No scleral icterus. No injection or drainage. ENT: No nasal bleeding or discharge. Mucous membranes pink and moist. NECK: Trachea midline. No JVD. CARDIOVASCULAR: Regular rate and rhythm. Prominent systolic murmur in the apex. RESPIRATORY: Somewhat superficial shallow respirations. Coarse breath sounds throughout both lung lamb. GASTROINTESTINAL: Scaphoid abdomen. Soft, no gross deep palpation or apparent tenderness. MUSCULOSKELETAL: No obvious deformities. No edema. Decreased muscle bulk throughout. NEUROLOGICAL: Decreased alertness. Eyes closed. Opens to voice. We'll say her name but not really following most commands. No obvious lateralization or focal weakness. Data Data Last Documented VS Vital Signs Date Time Temp Pulse Resp B/P Pulse Ox O2 Delivery O2 Flow Rate FiO2 11/29/16 11:00 84 22 100/57 100 BiPAP 50 11/29/16 10:05 15 11/29/16 10:00 99.7 Orders Electrocardiogram (11/29/16 09:58) Complete Blood Count With Diff (11/29/16 09:58) Comprehensive Metabolic Panel (11/29/16 09:58) Prothrombin Time / Inr (Pt) (11/29/16 09:58) Act Partial Throm Time (Ptt) (11/29/16 09:58) Lactic Acid Sepsis Protocol (11/29/16 09:58) Lipase (11/29/16 09:58) Troponin I (11/29/16 09:58) Urinalysis - C+S If Indicated (11/29/16 09:58) Influenzae A/B Antigen (11/29/16 09:58) Blood Culture (11/29/16 09:58) Chest, Single Ap (11/29/16 09:58) Arterial Blood Gas (Abg) (11/29/16 09:58) Blood Glucose (11/29/16 09:58) Ecg Monitoring (11/29/16 09:58) Iv Access Insert/Monitor (11/29/16 09:58) Oximetry (11/29/16 09:58) Oxygen Administration (11/29/16 09:58) Ct Brain W/O Iv Contrast(Rout) (11/29/16 09:58) Naloxone Inj (Narcan Inj) (11/29/16 10:00) Sodium Chlor 0.9% 1000 Ml Inj (Ns 1000 M (11/29/16 10:15) Methylprednisolone So Succ Inj (Solumedr (11/29/16 10:15) Albuterol-Ipratropium Neb (Duoneb Neb) (11/29/16 10:15) Resp Bipap / Cpap Non Invas Vt (11/29/16 10:07) Sputum Culture And Gram Stain (11/29/16 10:07) Arterial Blood Gas (Abg) (11/29/16 11:15) Piperacil-Tazo 4.5 Gm Premix (Zosyn 4.5 (11/29/16 10:30) Vancomycin Inj (Vancomycin Inj) (11/29/16 10:30) Labs Laboratory Tests Test 11/29/16 11/29/16 11/29/16 09:55 10:50 11:27 Blood Gas Puncture Site RT RADIAL LT RADIAL Blood Gas Patient Temperature 98.6 98.6 Blood Gas HCO3 29 mmol/L 27 mmol/L Blood Gas Base Excess 2.9 mmol/L -0.2 mmol/L Blood Gas Oxygen Saturation 96 % 95 % Arterial Blood pH 7.29 7.22 Arterial Blood Partial 62 mmHG 68 mmHG Pressure CO2 Arterial Blood Partial 108 mmHG 109 mmHG Pressure O2 Arterial Blood Oxygen Content 14.0 Vol % 12.0 Vol % Arterial Blood 1.6 % 1.4 % Carboxyhemoglobin Arterial Blood Methemoglobin 1.2 % 1.1 % Blood Gas Hemoglobin 10.3 G/DL 8.8 G/DL Oxygen Delivery Device NRB MASK BIPAP Blood Gas Liter Flow 15 L/M White Blood Count 17.6 TH/MM3 Red Blood Count 3.75 MIL/MM3 Hemoglobin 10.4 GM/DL Hematocrit 32.0 % Mean Corpuscular Volume 85.5 FL Mean Corpuscular Hemoglobin 27.7 PG Mean Corpuscular Hemoglobin 32.4 % Concent Red Cell Distribution Width 14.9 % Platelet Count 392 TH/MM3 Mean Platelet Volume 7.7 FL Neutrophils (%) (Auto) 81.5 % Lymphocytes (%) (Auto) 5.9 % Monocytes (%) (Auto) 11.8 % Eosinophils (%) (Auto) 0.6 % Basophils (%) (Auto) 0.2 % Neutrophils # (Auto) 14.4 TH/MM3 Lymphocytes # (Auto) 1.0 TH/MM3 Monocytes # (Auto) 2.1 TH/MM3 Eosinophils # (Auto) 0.1 TH/MM3 Basophils # (Auto) 0.0 TH/MM3 CBC Comment DIFF FINAL Differential Comment Prothrombin Time 11.8 SEC Prothromb Time International 1.1 RATIO Ratio Activated Partial 32.0 SEC Thromboplast Time Sodium Level 140 MEQ/L Potassium Level 4.6 MEQ/L Chloride Level 101 MEQ/L Carbon Dioxide Level 31.4 MEQ/L Anion Gap 8 MEQ/L Blood Urea Nitrogen 29 MG/DL Creatinine 1.10 MG/DL Estimat Glomerular Filtration 47 ML/MIN Rate Random Glucose 71 MG/DL Lactic Acid Level 1.0 mmol/L Calcium Level 8.6 MG/DL Total Bilirubin 0.2 MG/DL Aspartate Amino Transf 7 U/L (AST/SGOT) Alanine Aminotransferase LESS THAN 6 U/L (ALT/SGPT) Alkaline Phosphatase 93 U/L Troponin I 0.06 NG/ML Total Protein 6.8 GM/DL Albumin 2.0 GM/DL Lipase 78 U/L Blood Gas Ventilator Setting EPAP 5/IPAP 10 Blood Gas Inspired Oxygen 50 % MDM Medical Decision Making Medical Screen Exam Complete: Yes Emergency Medical Condition: Yes Interpretation(s) LABS: CBC remarkable for leukocytosis, mild anemia. CMP Lactate Troponin Lipase ABG 7.29/62/108/29, base excess 2.9 Chest x-ray: Interval development of left lung volume also nonspecific left basilar opacity could represent atelectasis consolidation or effusion. My review of EKG: Sinus rhythm at a rate of 94, leftward axis, anterior precordial Q waves suggestive ST elevations in lateral nonspecific ST changes could suggest LVH or ischemia. Compared to previous EKG from November 06, 2016 , there is no significant change. Differential Diagnosis Sepsis, hypercarbia, infection, overdose, renal failure, other Narrative Course Medical decision making INITIAL: 86-year-old woman presents emergency department with altered mental status, respiratory difficulties, and apparent aspiration. Chest x-ray shows a lower lobe infiltrate. She had deep endotracheal suction were for removal of copious amounts of purulent emesis, almost tube feed like in appearance. Initial ABG shows hypercarbic respiratory failure. She was placed on BiPAP, will be given antibiotic steroids IV fluids, will be admitted to the ICU. FINAL: 86-year-old woman, looks like pneumonia, possibly aspiration, was admitted to the ICU. I spoke with the patient's power of civil attorney again. She is a living will. She states that she has previously talked to the patient and they have discussed that if she were to worsen that she would not want to be placed on a breathing machine. If she were to worsen and were to she would want to be a lot the past naturally and not attempt resuscitation. Patient was made DNR. She'll be admitted to the ICU, on BiPAP, on antibiotics, for further evaluation and treatment. Diagnosis Primary Impression: Pneumonia Qualified Code: J18.9 - Pneumonia due to infectious organism, unspecified laterality, unspecified part of lung Additional Impression: Hypercapnic respiratory failure Qualified Code: J96.22 - Acute on chronic respiratory failure with hypercapnia Admitting Information Admitting Physician Requests: Admit Lui Yu MD Nov 29, 2016 11:13
[2016-11-29 11:16] LABS: ALT (GPT) LESS THAN 6 U/L (10-53); AST (GOT) 7 U/L (15-37); GLOMERULAR FILTRATION RATE 47 ML/MIN (>89)
[2016-11-29 11:18] LABS: TOTAL BILIRUBIN ADULT 0.2 MG/DL (0.2-1.0)
[2016-11-29 11:19] LABS: ALKALINE PHOSPHATASE 93 U/L (45-117)
[2016-11-29 11:38] LABS: BLOOD GAS BASE EXCESS -0.2 mmol/L (-2-2); BLOOD GAS CARBOXYHEMOGLOBIN 1.4 % (0-4); BLOOD GAS HCO3 27 mmol/L (22-26); BLOOD GAS METHEMOGLOBIN 1.1 % (0-2); BLOOD GAS O2 HGB SATURATION 95 % (90-100); BLOOD GAS PCO2 68 mmHG (38-42); BLOOD GAS PO2 109 mmHG (61-120); BLOOD GAS TOTAL HGB 8.8 G/DL (12.0-16.0); TEMP CORR TO 98.6
[2016-11-29 11:39] LABS: CRITICAL VALUE YES; DRAW SITE LT RADIAL; FIO2 50 %; NUMBER OF ARTERIAL PUNCTURES 1; OXYGEN DEVICE BIPAP; VENT SETTINGS EPAP 5/IPAP 10
[2016-11-29 11:40] LABS: STAT NO; ULNAR PULSE PRESENT
--- NOTE | 2016-11-29 12:24 | RADHPO ---
EXAM DATE/TIME: 11/29/2016 12:04 [facility] COMPARISON: CT BRAIN W/O CONTRAST, November 06, 2016, 14:30. INDICATIONS : Altered mental status today. RADIATION DOSE: 62.69 CTDIvol (mGy) MEDICAL HISTORY : Hypertension. Chronic obstructive pulmonary disease. SURGICAL HISTORY : None. ENCOUNTER: Initial ACUITY: 1 day PAIN SCALE: Non-responsive LOCATION: Bilateral head TECHNIQUE: Multiple contiguous axial images were obtained of the head. Using automated exposure control and adj ustment of the mA and/or kV according to patient size, radiation dose was kept as low as reasonably a chievable to obtain optimal diagnostic quality images. FINDINGS: CEREBRUM: There is generalized cerebral atrophy. Ventricles are prominent but within normal limits given the de gree of atrophy present. In the right periventricular white matter there is a stable well defined 6 m m low density representing old lacune. There is periventricular white matter low attenuation. No matt dence of midline shift, mass lesion, hemorrhage or acute infarction. No extra-axial fluid collection s are seen. POSTERIOR FOSSA: The cerebellum and brainstem demonstrate no acute finding. The 4th ventricle is midline. The cerebe llopontine angle is unremarkable. EXTRACRANIAL: The visualized portion of the orbits is intact. SKULL: The calvaria is intact. No evidence of skull fracture. CONCLUSION: 1. No acute intracranial abnormality is identified. Overall, stable exam. 2. Chronic changes include mild cerebral atrophy and periventricular white matter low attenuation serena racteristic of chronic microvascular ischemia. Masoud Thomas MD on November 29, 2016 at 12:20 Board Certified Radiologist. This report was verified electronically.
[2016-11-29] MEDS ORDERED: POTASSIUM PHOSPHATE MONOBASIC 500 MG TAB PO PRN (12:45)
[2016-11-29] MEDS ORDERED: SODIUM PHOSPHATE INJ 30 MMOL in SODIUM CHLOR 0.9% 250 ML INJ 240 ML IV PRN (12:45)
[2016-11-29] MEDS ORDERED: POTASSIUM PHOSPHATE MONOBASIC 500 MG TAB PO/TUBE PRN (12:45)
[2016-11-29] MEDS ORDERED: MAGNESIUM OXIDE 400 MG TAB PO PRN (12:45)
[2016-11-29] MEDS ORDERED: DEXTROSE 50% IN WATER 50 ML VIAL(D50) IV PUSH PRN (12:45)
[2016-11-29] MEDS ORDERED: ACETAMINOPHEN 325 MG TAB PO PRN (12:45)
[2016-11-29] MEDS ORDERED: ONDANSETRON HCL 4 MG/2 ML VIAL IV PRN (12:45)
[2016-11-29] MEDS ORDERED: POTASSIUM CHLOR 40 MEQ PREMIX 100 ML IV PRN ×2 (12:45)
[2016-11-29] MEDS ORDERED: POTASSIUM PHOSPHATE INJ 30 MMOL in SODIUM CHLOR 0.9% 250 ML INJ 250 ML IV PRN (12:45)
[2016-11-29] MEDS ORDERED: RESP: ALBUTEROL 2.5 MG/IPRATROPIUM 0.5 MG NEB (PRN) INH (12:45)
[2016-11-29] MEDS ORDERED: MAGNESIUM SULFATE INJ 2 GM in SODIUM CHLORIDE 0.9% INJ 96 ML IV PRN (12:45)
[2016-11-29] MEDS ORDERED: POTASSIUM CHLOR 20 MEQ PREMIX 100 ML IV PRN ×2 (12:45)
[2016-11-29] MEDS ORDERED: POTASSIUM CL 40 MEQ/30 ML LIQ UDC PO/TUBE PRN ×2 (12:45)
[2016-11-29] MEDS ORDERED: CHLORHEXIDINE GLUCONATE 2 % 1 PACK (2 CLOTHS) TOP PRN (12:45)
[2016-11-29] MEDS ORDERED: MAGNESIUM SULFATE INJ 4 GM in SODIUM CHLORIDE 0.9% INJ 92 ML IV PRN (12:45)
[2016-11-29] MEDS ORDERED: MISCELLANEOUS NURSING INFORMATION XX SCH (12:45)
[2016-11-29] MEDS ORDERED: SODIUM CHLORIDE 0.9% FLUSH 5 ML FLUSH IV FLUSH PRN (12:45)
[2016-11-29] MEDS ORDERED: VANCOMYCIN INJ 1,250 MG in SODIUM CHLOR 0.9% 250 ML INJ 250 ML IV ONE (12:45)
[2016-11-29] MEDS: SODIUM CHLOR 0.9% 1000 ML INJ 1,000 ML IV SCH (12:59)
[2016-11-29] MEDS ORDERED: Vancomycin Consult Pharmacy 1 EA OTHER SCH (14:00)
[2016-11-29] MEDS ORDERED: BUSP1TAB PO (14:03)
[2016-11-29] MEDS ORDERED: CARV6.252 PO (14:03)
[2016-11-29] MEDS ORDERED: BUPR75TA PO (14:03)
[2016-11-29] MEDS ORDERED: LIPI10TA PO (14:03)
[2016-11-29] MEDS ORDERED: MULTTAB67 PO (14:03)
[2016-11-29] MEDS ORDERED: ACET325T PO (14:03)
[2016-11-29] MEDS ORDERED: DONE10TA7 PO (14:03)
[2016-11-29] MEDS ORDERED: VITA1000 PO (14:03)
[2016-11-29] MEDS ORDERED: FERR325T PO (14:03)
[2016-11-29] MEDS ORDERED: OMEP20TA PO (14:03)
[2016-11-29] MEDS ORDERED: ALEN1TAB48 PO (14:03)
[2016-11-29] MEDS ORDERED: DIVA250T PO (14:03)
[2016-11-29] MEDS ORDERED: LORA1TAB12 PO (14:03)
[2016-11-29] MEDS ORDERED: ALBU1AER5 INH (14:03)
[2016-11-29] MEDS ORDERED: PARO20TA2 PO (14:03)
[2016-11-29] MEDS ORDERED: FLUT1INH INH (14:03)
[2016-11-29 15:13] LABS: BLOOD, URINE SMALL (NEG); GLUCOSE,URINE NEG (NEG); KETONE, URINE TRACE mg/dL (NEG); NITRITE,URINE NEG (NEG); PH, URINE 5.5 (5.0-8.5)
[2016-11-29 15:17] LABS: METHOD OF COLLECTION CLEAN CATCH; SQUAMOUS EPITHELIAL CELL URINE > 8 /hpf (0-5); URINE COLOR YELLOW (YELLW/STRAW)
[2016-11-29] MEDS: HEPARIN SODIUM - SQ 10,000 UNITS/ML VIAL SQ SCH ×2 (15:17→22:25)
[2016-11-29 15:18] LABS: BACTERIA, URINE MOD /hpf; COMMENT (UR) CULTURE INDICATED; CULTURE IF INDICATED CULTURE INDICATED
[2016-11-29] MEDS: PIPERACIL-TAZO 3.375 GM PREMIX 50 ML IV SCH (17:48)
[2016-11-29] MEDS: INSULIN NovoLIN REGULAR SUPPLEMENTAL SCALE SQ SCH (17:48)
[2016-11-29 19:33] LABS: BLOOD GAS BASE EXCESS -2.6 mmol/L (-2-2); BLOOD GAS HCO3 24 mmol/L (22-26); BLOOD GAS METHEMOGLOBIN 0.9 % (0-2); BLOOD GAS O2 HGB SATURATION 97 % (90-100); BLOOD GAS OXYGEN CONTENT 13.3 Vol % (12.0-20.0); BLOOD GAS PCO2 59 mmHg (38-42); BLOOD GAS PO2 136 mmHg (61-120); BLOOD GAS TOTAL HGB 9.6 G/DL (12.0-16.0)
[2016-11-29 19:34] LABS: CRITICAL VALUE YES; DRAW SITE RT BRACHIAL; FIO2 50 %; NUMBER OF ARTERIAL PUNCTURES 1; OXYGEN DEVICE BIPAP; STAT YES; VENT SETTINGS IPAP15/EPAP5
--- NOTE | 2016-11-29 19:48 | HHI.HP ---
[facility] Service Critical Care Medicine Primary Care Physician Tootie Paul MD Admission Diagnosis pneumonia, sepsis, hypercarbic respiratory failure Diagnosis: Chief Complaint: hypoxia Travel History International Travel<30 Days: No Contact w/Intl Traveler <30 Da: No Traveled to Known Affected Are: No History of Present Illness I was called to admit a patient from the emergency department at 12:25 PM. I spoke with Dr. thomason the ER doctor. Per his report, this is an 86-year-old woman brought into the [place] emergency department from a [facility] facility with altered mental status. She was apparently confused at home. Her pupils were initially pinpoint. She was given Narcan without significant response. On imaging she had a left lower lobe consolidation concerning for aspiration. Her laboratory data is pertinent for a white count of 17,000, creatinine 1.1, troponin 0.06. Dr. thomason stated he discussed the patient's care with her healthcare proxy who stated she wanted to be DNR/DNI. He placed this order in the chart. He also stated that in his opinion the patient would be safe for admission to the [facility] ICU. I saw and evaluated the patient at 7 :15 PM. On my evaluation, again the patient was somnolent and could not participate in history. She did say she was tired. She remained on BiPAP. Her ABG has improved slightly to 7.23/58/136. This is on BiPAP settings of 15/5 /50%. 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 Per chart review: Hypertension Anxiety Depression COPD Hemorrhoids History of acute renal failure on recent admission Past Surgical History Complete past surgical history is unobtainable secondary to patient's clinical condition. Reported Medications Complete home medication list is unobtainable from the patient secondary to her clinical condition. Per chart review: Bacitracin Topical 500 Unit/Gm Oint 1 Applic TOP Q12HR Ativan (Lorazepam) 1 Mg Tab 1 Mg PO Q8H PRN Ensure (Nutritional Supplements) 1 Liq Liq 1 Can PO BID Bupropion HCl 75 Mg Tab 75 Mg PO DAILY Symbicort Inh (Budesonide/Formoterol Fumarate) 160-4.5 Mcg/Act Aero 2 Puff INH Q12HR Fosamax (Alendronate Sodium) 70 Mg Tab 70 Mg PO Q7D Vitamin D3 (Cholecalciferol) 1,000 Unit Chew 1,000 Units PO DAILY Simvastatin 20 Mg Tab 20 Mg PO HS Paroxetine (Paroxetine HCl) 30 Mg Tab 30 Mg PO DAILY Acetaminophen 325 Mg Tab 650 Mg PO Q6HR PRN Ventolin Hfa 18 GM Inh (Albuterol Sulfate) 90 Mcg/Act Aer 1 Puff INH Q12HR PRN Omeprazole 20 Mg Tab 20 Mg PO DAILY Lisinopril 2.5 Mg Tab 2.5 Mg PO DAILY Florastor (Saccharomyces Boulardii) 250 Mg Cap 250 Mg PO BID Donepezil 10 Mg Tab 10 Mg PO HS Divalproex DR (Divalproex Sodium) 250 Mg Tabdr 250 Mg PO Q8HR Buspirone (Buspirone HCl) 7.5 Mg Tab 7.5 Mg PO DAILY Carvedilol 6.25 Mg Tab 6.25 Mg PO BID Active Ordered Medications See MAR Family History Complete family history is unobtainable secondary to the patient's clinical condition. It is unlikely to be contributory to her acute illness. Social History A complete social history is unobtainable secondary to patient's clinical condition. Per chart review: Denied alcohol use. Less than half pack a day smoker for a long time. Physical Exam Vital Signs Vital Signs Date Time Temp Pulse Resp B/P Pulse Ox O2 Delivery O2 Flow Rate FiO2 11/29/16 18:00 76 11/29/16 18:00 76 18 111/73 99 11/29/16 17:00 76 11/29/16 17:00 72 36 100/60 98 11/29/16 16:45 98.2 80 18 111/64 100 11/29/16 16:30 83 24 106/50 98 BiPAP 11/29/16 16:30 98 50 11/29/16 16:00 24 BiPAP 15 50 11/29/16 15:30 78 24 101/50 98 BiPAP 50 11/29/16 14:35 81 24 103/53 98 BiPAP 50 11/29/16 14:00 80 24 98 BiPAP 15 50 11/29/16 14:00 78 24 104/55 97 BiPAP 50 11/29/16 13:28 79 24 102/56 97 BiPAP 50 11/29/16 13:00 76 20 90/50 97 BiPAP 50 11/29/16 12:30 78 24 103/51 98 BiPAP 50 11/29/16 12:30 82 20 BiPAP 50 11/29/16 12:20 96 50 11/29/16 12:00 79 20 141/79 98 BiPAP 50 11/29/16 11:00 84 22 100/57 100 BiPAP 50 11/29/16 10:30 85 22 100 BiPAP 50 11/29/16 10:30 89 24 152/76 100 BiPAP 50 11/29/16 10:25 98 50 11/29/16 10:05 99 Non-Rebreather 15 11/29/16 10:05 24 98 Non-Rebreather 15 11/29/16 10:00 89 24 100 Non-Rebreather 15 11/29/16 10:00 99.7 92 24 140/72 99 Physical Exam GENERAL: Elderly frail cachectic female, lying in bed, moderate respiratory distress HEENT: Pupils equal, round, reactive, conjugate. Mucous membranes are dry. NECK: Trachea is midline. There is no JVD. CHEST: Tachypneic. BiPAP in place. Distant breath sounds. Significant expiratory time. Scant wheezes. CARDIOVASCULAR: Normal rate, regular rhythm. No appreciable murmurs. ABDOMEN: Soft, nontender, nondistended. No guarding. MUSCULOSKELETAL: No peripheral edema. Distal pulses are 2+. NEUROLOGICAL: RASS -2. Follows commands in all four extremities with some prompting. somnolent but arousable with stimulation. Laboratory Laboratory Tests Test 11/29/16 11/29/16 11/29/16 11/29/16 09:55 10:50 11:27 14:25 Blood Gas Puncture Site RT RADIAL LT RADIAL Blood Gas Patient Temperature 98.6 98.6 Blood Gas HCO3 29 27 Blood Gas Base Excess 2.9 -0.2 Blood Gas Oxygen Saturation 96 95 Arterial Blood pH 7.29 7.22 Arterial Blood Partial 62 68 Pressure CO2 Arterial Blood Partial 108 109 Pressure O2 Arterial Blood Oxygen Content 14.0 12.0 Arterial Blood 1.6 1.4 Carboxyhemoglobin Arterial Blood Methemoglobin 1.2 1.1 Blood Gas Hemoglobin 10.3 8.8 Oxygen Delivery Device NRB MASK BIPAP Blood Gas Liter Flow 15 White Blood Count 17.6 Red Blood Count 3.75 Hemoglobin 10.4 Hematocrit 32.0 Mean Corpuscular Volume 85.5 Mean Corpuscular Hemoglobin 27.7 Mean Corpuscular Hemoglobin 32.4 Concent Red Cell Distribution Width 14.9 Platelet Count 392 Mean Platelet Volume 7.7 Neutrophils (%) (Auto) 81.5 Lymphocytes (%) (Auto) 5.9 Monocytes (%) (Auto) 11.8 Eosinophils (%) (Auto) 0.6 Basophils (%) (Auto) 0.2 Neutrophils # (Auto) 14.4 Lymphocytes # (Auto) 1.0 Monocytes # (Auto) 2.1 Eosinophils # (Auto) 0.1 Basophils # (Auto) 0.0 CBC Comment DIFF FINAL Differential Comment Prothrombin Time 11.8 Prothromb Time International 1.1 Ratio Activated Partial 32.0 Thromboplast Time Sodium Level 140 Potassium Level 4.6 Chloride Level 101 Carbon Dioxide Level 31.4 Anion Gap 8 Blood Urea Nitrogen 29 Creatinine 1.10 Estimat Glomerular Filtration 47 Rate Random Glucose 71 Lactic Acid Level 1.0 Calcium Level 8.6 Total Bilirubin 0.2 Aspartate Amino Transf 7 (AST/SGOT) Alanine Aminotransferase LESS THAN 6 (ALT/SGPT) Alkaline Phosphatase 93 Troponin I 0.06 Total Protein 6.8 Albumin 2.0 Lipase 78 Blood Gas Ventilator Setting EPAP 5/IPAP 10 Blood Gas Inspired Oxygen 50 Urine Collection Type CLEAN CATCH Urine Color YELLOW Urine Turbidity CLEAR Urine pH 5.5 Urine Specific [place] 1.023 Urine Protein TRACE Urine Glucose (UA) NEG Urine Ketones TRACE Urine Occult Blood SMALL Urine Nitrite NEG Urine Bilirubin NEG Urine Leukocyte Esterase TRACE Urine RBC 10-14 Urine WBC 9-14 Urine Squamous Epithelial > 8 Cells Urine Bacteria MOD Microscopic Urinalysis Comment CULTURE INDICATED Urine Collection Time 14:25 Date/Time Procedure Status Source Growth 11/29/16 14:25 Urine Culture Received Urine Clean Catch Pending 11/29/16 11:15 Aerobic Blood Culture Received Blood Peripheral Pending 11/29/16 11:15 Anaerobic Blood Culture Received Blood Peripheral Pending 11/29/16 11:02 Influenza Types A,B Antigen (PURA) - Final Complete Nasal Washing NEGATIVE FOR FLU A AND B ANTIGEN.... 11/29/16 10:20 Gram Stain Received Sputum Oral Tracheal Aspirate Pending 11/29/16 10:20 Sputum Culture Received Sputum Oral Tracheal Aspirate Pending Result Diagram: 11/29/16 1050 11/29/16 1050 Assessment and Plan Assessment and Plan Assessment: This is an 86-year-old female with history of severe COPD who presents with acute altered mental status, severe hypercarbic and hypoxic respiratory failure, likely aspiration pneumonia. Although I have not spoken to the healthcare proxy myself, I trust that Dr. thomason had a thorough conversation about the risks to the patient being DNR/DNI including the risk that she may continue into respiratory failure and . Despite this, I do agree, reviewing the medical record, that the patient would be a good candidate for conservative measures only, as I think that the patient may never separate from mechanical ventilation if she were to be intubated. I think for now, we will continue BiPAP and antibiotics as well as very gentle hydration. Certainly her recent reported history of acute renal failure concerns me, however her respiratory status concerns me more, and I think that we should be very judicious with her fluids. Overall, the patient remains severely critically ill, and I'm very concerned she may not survive this hospital stay. Plan by systems: Neurologic: Metabolic encephalopathy Avoid sedating meds We will keep the patient nothing by mouth 2 minimize risk of aspiration Tylenol as needed for pain or fever 11/[address] negative Respiratory: Acute hypoxic hypercarbic respiratory failure COPD Aspiration pneumonia Continue BiPAP DNR/DNI at the patient's wishes Wean FiO2 for BiPAP for goal SPO2 greater than 90% Aggressive pulmonary toilet with incentive spirometer, Accupap, EZ Pap Methylprednisolone 60 mg IV every 12 DuoNeb's every 4 and every 2 when necessary Cardiovascular: Continue telemetry Renal: Acute kidney injury Place [place] with urometer Every hour urine outputs Normal saline at 42 mL/hr. We'll need to make at least 0.5 cc/kg per hour, which is approximately 20 cc an hour. We may need to increase maintenance fluids, although I'm concerned this may worsen her respiratory distress. -- Strict I/Os FEN/GI: Intravascular hypovolemia Hyperkalemia Maintenance fluids as above Nothing by mouth in the setting that she made aspirated and she may not be completely controlling her airway. ICU electrolyte protocol Daily BMP Daily bowel regimen with senna and Colace Heme/ID: Leukocytosis Aspiration pneumonia Vancomycin with pharmacy dosing given [facility] Follow-up blood, sputum cultures Daily CBC Endocrine: Hyperglycemia of critical illness -- SSI, every 6 hours, medium scale Prophylaxis: GI Prophylaxis Protonix 40 mg IV every 12 hours DVT Prophylaxis -- SCDs Subcutaneous heparin Lines: Peripheral IVs Benites Dispo: Admit the ICU. She remains critically ill. If she does not improve, we may be forced to consider hospice options in the next few days. This patient remains critically ill with one or more organ systems which are or may become a threat to life. I have spent in excess of 47 minutes discontinuously in the care and management of this patient. This time is exclusive of procedures, and includes, but is not limited to, evaluation of the patient, review of the medical record, discussions with family, consultants, nursing staff, or respiratory therapy, and documentation in the medical record. Code Status DNR/DNI as expressed by her healthcare proxy as discussed with Dr. Thomason. Please see his documentation for details. Tai Campbell MD Nov 29, 2016 19:48
[2016-11-29] MEDS: DOCUSATE SODIUM 50 MG/SENNA 8.6 MG TAB PO SCH (21:00)
[2016-11-29] MEDS: SODIUM CHLORIDE 0.9% FLUSH 5 ML FLUSH IV FLUSH SCH (22:25)
[2016-11-29] MEDS: methylPREDNISolone SOD SUCC 125 MG/2 ML VIAL IV PUSH SCH (22:25)
--- NOTE | 2016-11-29 23:09 | EKG ---
Date Performed: 11/29/2016 Time Performed: 09:56:00 PTAGE: 86 years EKG: Sinus rhythm . Possible septal infarct - age undetermined Probable LVH with secondary ST/T wave changes Abnormal E CG PREVIOUS TRACING : 11/06/2016 15.00 Compared to prior tracing no significant change DOCTOR: Alfonso Fenton Interpretating Date/Time 11/29/2016 23:07:25
[2016-11-30] VITALS (30 sets, daily range): BP systolic 84–152; BP diastolic 42–75; PULSE 70–118; RESP 14–31; TEMP 97.8–98.4; O2SAT 90–100
[2016-11-30] MEDS: PIPERACIL-TAZO 3.375 GM PREMIX 50 ML IV SCH ×4 (00:39→17:15)
[2016-11-30] MEDS ORDERED: SODIUM CHLOR 0.9% 250 ML INJ 250 ML IV ONE (01:45)
[2016-11-30] MEDS: RESP: ALBUTEROL 2.5 MG/IPRATROPIUM 0.5 MG NEB (SCH) INH ×5 (03:05→19:27)
[2016-11-30] MEDS: CHLORHEXIDINE GLUCONATE 2 % 1 PACK (2 CLOTHS) TOP SCH (05:45)
[2016-11-30] MEDS: HEPARIN SODIUM - SQ 10,000 UNITS/ML VIAL SQ SCH ×3 (05:45→21:13)
[2016-11-30 05:50] LABS: HEMATOCRIT 29.3 % (35.0-46.0); MEAN CELL VOLUME 85.2 FL (80.0-100.0); MEAN CORPUSCULAR HEMOGLOBIN 27.9 PG (27.0-34.0); MEAN CORPUSCULAR HGB CONC 32.8 % (32.0-36.0); PLATELET COUNT 417 TH/MM3 (150-450); RED BLOOD COUNT 3.43 MIL/MM3 (4.00-5.30); RED CELL DISTRIBUTION WIDTH 14.8 % (11.6-17.2); REVIEW FLAG FINAL; WHITE BLOOD COUNT 21.1 TH/MM3 (4.0-11.0)
[2016-11-30 05:52] LABS: BLOOD GAS BASE EXCESS -2.6 mmol/L (-2-2); BLOOD GAS CARBOXYHEMOGLOBIN 0.9 % (0-4); BLOOD GAS HCO3 24 mmol/L (22-26); BLOOD GAS METHEMOGLOBIN 0.9 % (0-2); BLOOD GAS O2 HGB SATURATION 95 % (90-100); BLOOD GAS OXYGEN CONTENT 12.4 Vol % (12.0-20.0); BLOOD GAS PCO2 64 mmHg (38-42); BLOOD GAS PO2 92 mmHg (61-120); BLOOD GAS TOTAL HGB 9.2 G/DL (12.0-16.0)
[2016-11-30 05:53] LABS: CRITICAL VALUE YES; DRAW SITE RT BRACHIAL; FIO2 40 %; NUMBER OF ARTERIAL PUNCTURES 1; OXYGEN DEVICE BIPAP; STAT NO; VENT SETTINGS IPAP15/EPAP5
[2016-11-30] MEDS: INSULIN NovoLIN REGULAR SUPPLEMENTAL SCALE SQ SCH ×4 (06:00→17:15)
[2016-11-30 06:08] LABS: POTASSIUM 4.5 MEQ/L (3.5-5.1)
[2016-11-30 06:11] LABS: BICARBONATE 28.2 MEQ/L (21.0-32.0)
--- NOTE | 2016-11-30 06:13 | RADHPO ---
EXAM DATE/TIME: 11/30/2016 05:52 [facility] COMPARISON: CHEST SINGLE AP, November 29, 2016, 10:07. INDICATIONS : Shortness of breath. MEDICAL HISTORY : Hypertension. Chronic obstructive pulmonary disease. SURGICAL HISTORY : None. ENCOUNTER: Subsequent ACUITY: 2 days PAIN SCORE: Non-responsive. LOCATION: Bilateral chest FINDINGS: A single view of the chest demonstrates proximal consolidation the left lung base which is not signif icantly changed compared to the prior study. The right lung is grossly clear and well-aerated. There are no definite pleural effusions. Heart size is stable. The bony structures are stable. Compared to the prior examination no significant new changes are demonstrated.. CONCLUSION: There continues to be some consolidation the left lung base. Otherwise no new or significant changes are demonstrated compared to the prior study. Ruddy Hernandez MD on November 30, 2016 at 6:10 Board Certified Radiologist. This report was verified electronically.
--- NOTE | 2016-11-30 06:20 | HHI.CCPN ---
Subjective Remarks/Hospital Course Hospital Course: I was called to admit a patient from the emergency department at 12:25 PM. I spoke with Dr. arias the ER doctor. Per his report, this is an 86-year-old woman brought into the [place] [facility] with altered mental status. She was apparently confused at home. Her pupils were initially pinpoint. She was given Narcan without significant response. On imaging she had a left lower lobe consolidation concerning for aspiration. Her laboratory data is pertinent for a white count of 17,000, creatinine 1.1, troponin 0.06. Dr. arias stated he discussed the patient's care with her healthcare proxy who stated she wanted to be DNR/DNI. He placed this order in the chart. He also stated that in his opinion the patient would be safe for admission to the [place] ICU. I saw and evaluated the patient at 7 :15 PM. On my evaluation, again the patient was somnolent and could not participate in history. She did say she was tired. She remained on BiPAP. Her ABG has improved slightly to 7.23/58/136. This is on BiPAP settings of 15/5 /50%. Subjective: 11/30: ABGs slightly improved, although remains with significant hypercarbic respiratory failure. somewhat more awake overnight, but to my exam this morning still somnolent. wbc rising, but hemodynamically stable. one episode of oliguria overnight that responded well to 250cc fluid bolus. Objective Vital Signs Date Time Temp Pulse Resp B/P Pulse Ox O2 Delivery O2 Flow Rate FiO2 11/30/16 04:15 98 40 11/30/16 03:00 82 24 104/50 11/30/16 00:00 97.8 11/29/16 20:00 Bi-Pap 11/29/16 16:00 15 Intake and Output 11/29/16 11/29/16 11/30/16 08:00 16:00 00:00 Intake Total 2300 ml 403 ml Output Total 175 ml Balance 2300 ml 228 ml Result Diagram: 11/30/16 0517 11/29/16 1050 Other Results Microbiology Date/Time Procedure Status Source Growth 11/29/16 11:02 Influenza Types A,B Antigen (PURA) - Final Complete Nasal Washing NEGATIVE FOR FLU A AND B ANTIGEN.... Laboratory Tests Test 11/29/16 11/29/16 11/29/16 11/30/16 09:55 11:27 19:22 05:38 Blood Gas Puncture Site RT RADIAL LT RADIAL RT BRACHIAL RT BRACHIAL Blood Gas Patient Temperature 98.6 98.6 37.0 37.0 Blood Gas HCO3 29 mmol/L 27 mmol/L 24 mmol/L 24 mmol/L (22-26) (22-26) (22-26) (22-26) Blood Gas Base Excess 2.9 mmol/L -0.2 mmol/L -2.6 mmol/L -2.6 mmol/L (-2-2) (-2-2) (-2-2) (-2-2) Blood Gas Oxygen Saturation 96 % (90-100) 95 % (90-100) 97 % (90-100) 95 % (90- 100) Arterial Blood pH 7.29 7.22 7.23 7.21 (7.380-7.420) (7.380-7.420) (7.380-7.420) (7.380-7.420) Arterial Blood Partial 62 mmHG (38-42) 68 mmHG (38-42) 59 mmHg (38-42) 64 mmHg ( 38-42) Pressure CO2 Arterial Blood Partial 108 mmHG 109 mmHG 136 mmHg 92 mmHg Pressure O2 (61-120) (61-120) (61-120) (61-120) Arterial Blood Oxygen Content 14.0 Vol % 12.0 Vol % 13.3 Vol % 12.4 Vol % (12.0-20.0) (12.0-20.0) (12.0-20.0) (12.0-20.0) Arterial Blood 1.6 % (0-4) 1.4 % (0-4) 1.0 % (0-4) 0.9 % (0-4) Carboxyhemoglobin Arterial Blood Methemoglobin 1.2 % (0-2) 1.1 % (0-2) 0.9 % (0-2) 0.9 % (0-2) Blood Gas Hemoglobin 10.3 G/DL 8.8 G/DL 9.6 G/DL 9.2 G/DL (12.0-16.0) (12.0-16.0) (12.0-16.0) (12.0-16.0) Oxygen Delivery Device NRB MASK BIPAP BIPAP BIPAP Blood Gas Liter Flow 15 L/M Blood Gas Ventilator Setting EPAP 5/IPAP 10 IPAP15/EPAP5 IPAP15/EPAP5 Blood Gas Inspired Oxygen 50 % 50 % 40 % Objective Remarks GENERAL: Elderly frail cachectic female, lying in bed, mild respiratory distress HEENT: Pupils equal, round, reactive, conjugate. Mucous membranes are dry. NECK: Trachea is midline. There is no JVD. CHEST: Tachypneic. BiPAP in place. Distant breath sounds. Significant expiratory time. Scant wheezes. CARDIOVASCULAR: Normal rate, regular rhythm. Grade II/ DAVID at LUSB. ABDOMEN: Soft, nontender, nondistended. No guarding. MUSCULOSKELETAL: No peripheral edema. Distal pulses are 2+. NEUROLOGICAL: RASS -2. Follows commands in all four extremities with some prompting. somnolent but arousable with stimulation. A/P Assessment and Plan Assessment: This is an 86-year-old female with history of severe COPD who presents with acute altered mental status, severe hypercarbic and hypoxic respiratory failure, likely aspiration pneumonia. Per her wishes as expressed by her health care proxy, she is DNR/DNI. She is not on pathway and has not improved as I would expect. We will continue BiPAP and await culture data. We will continue gentle hydration. Overall, the patient remains severely critically ill, and I'm very concerned she may not survive this hospital stay. Plan by systems: Neurologic: Metabolic encephalopathy Avoid sedating meds Tylenol as needed for pain or fever 11/[address] negative Respiratory: Acute hypoxic hypercarbic respiratory failure COPD Aspiration pneumonia Continue BiPAP DNR/DNI at the patient's wishes Wean FiO2 for BiPAP for goal SPO2 greater than 90% Aggressive pulmonary toilet with incentive spirometer, Accupap, EZ Pap Methylprednisolone 60 mg IV every 12 DuoNeb's every 4 and every 2 when necessary --trend ABGs Cardiovascular: Systolic Ejection Murmur Continue telemetry --given age, murmur is likely aortic stenosis murmur. will order 2d echo today. Renal: Acute kidney injury continue Benites catheter Every hour urine outputs Normal saline at 42 mL/hr. We'll need to make at least 0.5 cc/kg per hour, which is approximately 20 cc an hour. We may need to increase maintenance fluids, although I'm concerned this may worsen her respiratory distress. -- Strict I/Os FEN/GI: Intravascular hypovolemia Hyperkalemia Acute protein calorie malnutrition- severe Maintenance fluids as above if she awakens more, we may consider clear liquids, though we will weigh risk/ benefits of nutritional deficits with aspiration risk. ICU electrolyte protocol Daily BMP Daily bowel regimen with senna and Colace Heme/ID: Leukocytosis Aspiration pneumonia Vancomycin with pharmacy dosing given healthcare association Zosyn Follow-up blood, sputum cultures Daily CBC Endocrine: Hyperglycemia of critical illness -- SSI, every 6 hours, medium scale Prophylaxis: GI Prophylaxis Protonix 40 mg IV every 12 hours DVT Prophylaxis -- SCDs Subcutaneous heparin Lines: Peripheral IVs Benites Dispo: remain in the ICU. She remains critically ill. If she does not improve, we may be forced to consider hospice options in the next few days. This patient remains critically ill with one or more organ systems which are or may become a threat to life. I have spent in excess of 31 minutes discontinuously in the care and management of this patient. This time is exclusive of procedures, and includes, but is not limited to, evaluation of the patient, review of the medical record, discussions with family, consultants, nursing staff, or respiratory therapy, and documentation in the medical record. Tai Campbell MD Nov 30, 2016 06:20
[2016-11-30] MEDS: DOCUSATE SODIUM 50 MG/SENNA 8.6 MG TAB PO SCH ×2 (09:00→21:12)
[2016-11-30] MEDS: methylPREDNISolone SOD SUCC 125 MG/2 ML VIAL IV PUSH SCH ×2 (09:13→21:12)
[2016-11-30] MEDS: PANTOPRAZOLE SODIUM 40 MG VIAL IV SCH (09:13)
[2016-11-30] MEDS: SODIUM CHLORIDE 0.9% FLUSH 5 ML FLUSH IV FLUSH SCH ×2 (09:14→21:12)
[2016-11-30 09:52] LABS: BLOOD GAS BASE EXCESS -2.3 mmol/L (-2-2); BLOOD GAS CARBOXYHEMOGLOBIN 0.8 % (0-4); BLOOD GAS HCO3 25 mmol/L (22-26); BLOOD GAS METHEMOGLOBIN 0.7 % (0-2); BLOOD GAS O2 HGB SATURATION 97 % (90-100); BLOOD GAS OXYGEN CONTENT 13.3 Vol % (12.0-20.0); BLOOD GAS PCO2 68 mmHg (38-42); BLOOD GAS PO2 140 mmHg (61-120); BLOOD GAS TOTAL HGB 9.5 G/DL (12.0-16.0); CRITICAL VALUE YES; OXYGEN DEVICE BIPAP
[2016-11-30 09:53] LABS: DRAW SITE RT RADIAL; FIO2 40 %; NUMBER OF ARTERIAL PUNCTURES 1; STAT NO; ULNAR PULSE PRESENT; VENT SETTINGS IPAP 15/EPAP5
[2016-11-30] MEDS: SODIUM CHLOR 0.9% 1000 ML INJ 1,000 ML IV SCH (11:22)
[2016-11-30 14:43] LABS: BICARBONATE 26.3 MEQ/L (21.0-32.0)
[2016-11-30 16:46] LABS: BLOOD GAS BASE EXCESS -1.1 mmol/L (-2-2); BLOOD GAS CARBOXYHEMOGLOBIN 1.2 % (0-4); BLOOD GAS HCO3 24 mmol/L (22-26); BLOOD GAS METHEMOGLOBIN 0.7 % (0-2); BLOOD GAS O2 HGB SATURATION 90 % (90-100); BLOOD GAS OXYGEN CONTENT 11.6 Vol % (12.0-20.0); BLOOD GAS PCO2 46 mmHg (38-42); BLOOD GAS PO2 57 mmHg (61-120); BLOOD GAS TOTAL HGB 9.1 G/DL (12.0-16.0); CRITICAL VALUE YES; OXYGEN DEVICE BIPAP
[2016-11-30 16:47] LABS: DRAW SITE RT BRACHIAL; FIO2 40 %; NUMBER OF ARTERIAL PUNCTURES 1; STAT YES; ULNAR PULSE PRESENT; VENT SETTINGS IPAP 15/EPAP 5
--- NOTE | 2016-11-30 17:23 | EC ---
Study Study Date:11/30/2016 STUDY CONCLUSIONS SUMMARY - Left ventricle: The cavity size was normal. Wall thickness was increased increased in a pattern of mild to moderate LVH. Systolic function was normal. The estimated ejection fraction was 65%. Wall motion was normal; there were no regional wall motion abnormalities. - Aortic valve: Transvalvular velocity was increased. There was mild stenosis. Trace regurgitation. Mean gradient: 18mm Hg (S). Peak gradient: 37mm Hg (S). - Mitral valve: Mild to moderate regurgitation. - Left atrium: The atrium was dilated. - Right atrium: The atrium was dilated. - Tricuspid valve: Mild-moderate regurgitation. - Pulmonary arteries: Systolic pressure was moderately increased. PA peak pressure: 66mm Hg (S). If LV function is below 40, please consider prescribing an ACEI or ARB or document rationale for non-use. PROCEDURE DATA STUDY STATUS: Elective. Procedure: Transthoracic echocardiography. Image quality was good. Scanning was performed from the parasternal, apical, and subcostal acoustic windows. Study completion: The patient tolerated the procedure well. Transthoracic echocardiography. M-mode, complete 2D, complete spectral Doppler, and color Doppler. Height: Height: 66in. Weight: Weight: 98.8lb. Body mass index: BMI: 16kg/m^2. Body surface area: BSA: 1.48m^2. Patient status: Inpatient. CARDIAC ANATOMY LEFT VENTRICLE: The cavity size was normal. Wall thickness was increased increased in a pattern of mild to moderate LVH. Systolic function was normal. The estimated ejection fraction was 65%. Wall motion was normal; there were no regional wall motion abnormalities. AORTIC VALVE: Trileaflet; moderately thickened, moderately calcified leaflets. Doppler: Transvalvular velocity was increased. There was mild stenosis. Trace regurgitation. Valve area: 1.05cm^2(VTI). Indexed valve area: 0.71cm^2/m^2 (VTI). Valve area: 0.99cm^2 (Vmax). Indexed valve area: 0.67cm^2/m^2 (Vmax). Mean gradient: 18mm Hg (S). Peak gradient: 37mm Hg (S). AORTA: Aortic root: The aortic root was normal in size. MITRAL VALVE: Structurally normal valve. Doppler: Transvalvular velocity was within the normal range. There was no evidence for stenosis. Mild to moderate regurgitation. Peak gradient: 3mm Hg (D). LEFT ATRIUM: The atrium was dilated. RIGHT VENTRICLE: The cavity size was normal. Wall thickness was normal. PULMONIC VALVE: Doppler: Transvalvular velocity was within the normal range. There was no evidence for stenosis. No regurgitation. TRICUSPID VALVE: Structurally normal valve. Doppler: Transvalvular velocity was within the normal range. Mild-moderate regurgitation. PULMONARY ARTERY: The main pulmonary artery was normal-sized. Systolic pressure was moderately increased. RIGHT ATRIUM: The atrium was dilated. PERICARDIUM: There was no pericardial effusion. SYSTEMIC VEINS: Inferior vena cava: The vessel was normal in size. Patient weight: 98.8lb _Ejection fraction:_ 65-75% _Fractional shortening:_ 32% up to 5Kg 5-11.5Kg 11.6-22.9Kg 23-45Kg 45-57Kg Aortic Root 7-13 <17 13-22 17-27 17-27 LA diam 6-13 <23 24-38 33-47 37-40 RVID 10-17 7-15 7-15 7-18 8-17 LVIDd 12-22 <32 24-38 33-47 37-40 LVPW 2-4 3-6 5-7 6-8 7-8 IVS 2-4 3-6 5-7 6-8 7-8 BASIC MEASUREMENTS ADULT NORMAL Left ventricle LV internal dimension, ED, chordal *33 mm 43-52 level, PLAX LV internal dimension, ES, chordal 23.5 mm 23-38 level, PLAX Fractional shortening, chordal level, *29 % >29 PLAX LV posterior wall thickness, ED 12.7 mm IVS/LVPW ratio, ED 1 <1.3 Ventricular septum Septal thickness, ED 12.7 mm Aortic valve Leaflet separation *11 mm 15-26 Aorta Root diameter, ED 29 mm Left atrium Anterior-posterior dimension 28 mm Anterior-posterior dimension index 1.89 cm/m^2 <2.2 BASIC MEASUREMENTS ADULT NORMAL Aortic valve Leaflet separation *11 mm 15-26 DOPPLER MEASUREMENTS ADULT NORMAL Main pulmonary artery Pressure, S *66 mm Hg =30 Aortic valve Peak velocity, S 304 cm/s Mean velocity, S 185 cm/s VTI, S 59.3 cm Mean gradient, S 18 mm Hg Peak gradient, S 37 mm Hg Valve area, VTI 1.05 cm^2 Valve area index, VTI 0.71 cm^2/m^2 Valve area, Vmax 0.99 cm^2 Valve area index, Vmax 0.67 cm^2/m^2 Mitral valve Peak E-wave velocity 92.5 cm/s Peak A-wave velocity 125 cm/s Deceleration time 165 ms 150-230 Peak gradient, D 3 mm Hg Peak E/A ratio 0.7 Tricuspid valve Regurgitant peak velocity 377 cm/s Peak RV-RA gradient, S 57 mm Hg Maximal regurgitant velocity 377 cm/s Systemic veins Estimated CVP 10 mm Hg Right ventricle RV pressure, S *69 mm Hg <30 Pulmonic valve Peak velocity, S 79.7 cm/s LEGEND: Mean values are shown as u=mean value. Asterisk (*) rodriguez values outside specified normal range. Prepared and signed by Margret Ge [id number]
[2016-11-30] MEDS: MORPHINE SULFATE 4 MG/ML INJ IV PRN (21:13)
[2016-11-30 21:27] LABS: BICARBONATE 25.5 MEQ/L (21.0-32.0); POTASSIUM 4.1 MEQ/L (3.5-5.1)
[2016-12-01] VITALS (21 sets, daily range): BP systolic 104–154; BP diastolic 56–88; PULSE 78–106; RESP 14–25; TEMP 98.3–99.2; O2SAT 91–100
[2016-12-01] MEDS: CHLORHEXIDINE GLUCONATE 2 % 1 PACK (2 CLOTHS) TOP SCH (00:08)
[2016-12-01] MEDS: PIPERACIL-TAZO 3.375 GM PREMIX 50 ML IV SCH ×4 (00:19→17:25)
[2016-12-01] MEDS: RESP: ALBUTEROL 2.5 MG/IPRATROPIUM 0.5 MG NEB (SCH) INH ×5 (03:58→16:00)
[2016-12-01 05:32] LABS: POTASSIUM 4.3 MEQ/L (3.5-5.1)
[2016-12-01 05:35] LABS: BICARBONATE 31.7 MEQ/L (21.0-32.0)
[2016-12-01 05:49] LABS: HEMATOCRIT 28.6 % (35.0-46.0); MEAN CELL VOLUME 84.9 FL (80.0-100.0); MEAN CORPUSCULAR HEMOGLOBIN 26.8 PG (27.0-34.0); MEAN CORPUSCULAR HGB CONC 31.6 % (32.0-36.0); PLATELET COUNT 475 TH/MM3 (150-450); RED BLOOD COUNT 3.37 MIL/MM3 (4.00-5.30); RED CELL DISTRIBUTION WIDTH 14.7 % (11.6-17.2); REVIEW FLAG FINAL; WHITE BLOOD COUNT 18.6 TH/MM3 (4.0-11.0)
[2016-12-01] MEDS: INSULIN NovoLIN REGULAR SUPPLEMENTAL SCALE SQ SCH ×4 (06:00→17:27)
[2016-12-01] MEDS ORDERED: VANCOMYCIN INJ 850 MG in SODIUM CHLOR 0.9% 250 ML INJ 250 ML IV SCH (06:00)
[2016-12-01] MEDS: HEPARIN SODIUM - SQ 10,000 UNITS/ML VIAL SQ SCH ×2 (06:52→14:00)
--- NOTE | 2016-12-01 07:46 | HHI.CCPN ---
Subjective Remarks/Hospital Course Hospital Course: I was called to admit a patient from the emergency department at 12:25 PM. I spoke with Dr. arias the ER doctor. Per his report, this is an 86-year-old woman brought into the [place] emergency department from a senior care facility with altered mental status. She was apparently confused at home. Her pupils were initially pinpoint. She was given Narcan without significant response. On imaging she had a left lower lobe consolidation concerning for aspiration. Her laboratory data is pertinent for a white count of 17,000, creatinine 1.1, troponin 0.06. Dr. arias stated he discussed the patient's care with her healthcare proxy who stated she wanted to be DNR/DNI. He placed this order in the chart. He also stated that in his opinion the patient would be safe for admission to the [place] ICU. I saw and evaluated the patient at 7 :15 PM. On my evaluation, again the patient was somnolent and could not participate in history. She did say she was tired. She remained on BiPAP. Her ABG has improved slightly to 7.23/58/136. This is on BiPAP settings of 15/5 /50%. Subjective: 11/30: ABGs slightly improved, although remains with significant hypercarbic respiratory failure. somewhat more awake overnight, but to my exam this morning still somnolent. wbc rising, but hemodynamically stable. one episode of oliguria overnight that responded well to 250cc fluid bolus. 12/01: improving mental status throughout the day yesterday, though to my exam today still very somnolent. per nursing report, when she was awake overnight, she kept asking for hospice. sputum growing pseudomonas and H. Flu, sensitivities pending. Objective Vital Signs Date Time Temp Pulse Resp B/P Pulse Ox O2 Delivery O2 Flow Rate FiO2 12/01/16 06:00 89 12/01/16 06:00 21 117/60 100 12/01/16 04:00 99.0 12/01/16 04:00 Nasal Cannula 3.00 11/30/16 16:00 40 Intake and Output 11/30/16 11/30/16 12/01/16 08:00 16:00 00:00 Intake Total 591 ml 391 ml 330 ml Output Total 160 ml 175 ml 225 ml Balance 431 ml 216 ml 105 ml Result Diagram: 12/01/16 0509 12/01/16 0509 Other Results Microbiology Date/Time Procedure Status Source Growth 11/29/16 11:02 Influenza Types A,B Antigen (PURA) - Final Complete Nasal Washing NEGATIVE FOR FLU A AND B ANTIGEN.... Laboratory Tests Test 11/30/16 11/30/16 09:40 16:35 Blood Gas Puncture Site RT RADIAL RT BRACHIAL Blood Gas Patient Temperature 37.0 37.0 Blood Gas HCO3 25 mmol/L 24 mmol/L (22-26) (22-26) Blood Gas Base Excess -2.3 mmol/L -1.1 mmol/L (-2-2) (-2-2) Blood Gas Oxygen Saturation 97 % (90-100) 90 % (90-100) Arterial Blood pH 7.19 7.34 (7.380-7.420) (7.380-7.420) Arterial Blood Partial 68 mmHg (38-42) 46 mmHg (38-42) Pressure CO2 Arterial Blood Partial 140 mmHg 57 mmHg Pressure O2 (61-120) (61-120) Arterial Blood Oxygen Content 13.3 Vol % 11.6 Vol % (12.0-20.0) (12.0-20.0) Arterial Blood 0.8 % (0-4) 1.2 % (0-4) Carboxyhemoglobin Arterial Blood Methemoglobin 0.7 % (0-2) 0.7 % (0-2) Blood Gas Hemoglobin 9.5 G/DL 9.1 G/DL (12.0-16.0) (12.0-16.0) Oxygen Delivery Device BIPAP BIPAP Blood Gas Ventilator Setting IPAP 15/EPAP5 IPAP 15/EPAP 5 Blood Gas Inspired Oxygen 40 % 40 % Objective Remarks GENERAL: Elderly frail cachectic female, lying in bed, mild respiratory distress HEENT: Pupils equal, round, reactive, conjugate. Mucous membranes are dry. NECK: Trachea is midline. There is no JVD. CHEST: Tachypneic. on nasal cannula today. Distant breath sounds. Significant expiratory time. Scant wheezes. CARDIOVASCULAR: Normal rate, regular rhythm. Grade II/ DAVID at LUSB. ABDOMEN: Soft, nontender, nondistended. No guarding. MUSCULOSKELETAL: No peripheral edema. Distal pulses are 2+. NEUROLOGICAL: RASS -2. Follows commands in all four extremities with some prompting. somnolent but arousable with stimulation. A/P Assessment and Plan Assessment: This is an 86-year-old female with history of severe COPD who presents with acute altered mental status, severe hypercarbic and hypoxic respiratory failure, community acquired pneumonia. Per her wishes as expressed by her health care proxy, she is DNR/DNI. I will consult palliative care to assist with goals of care, but I do agree she would be an appropriate hospice candidate at this point. Plan by systems: Neurologic: Metabolic encephalopathy Avoid sedating meds Tylenol as needed for pain or fever 11/[address] negative Respiratory: Acute hypoxic hypercarbic respiratory failure COPD Aspiration pneumonia Continue BiPAP DNR/DNI at the patient's wishes Wean FiO2 for BiPAP for goal SPO2 greater than 90% Aggressive pulmonary toilet with incentive spirometer, Accupap, EZ Pap Methylprednisolone 60 mg IV every 12 DuoNeb's every 4 and every 2 when necessary Cardiovascular: Aortic stenosis- mild. Continue telemetry Renal: Acute kidney injury continue Benites catheter Every hour urine outputs Normal saline at 42 mL/hr. We'll need to make at least 0.5 cc/kg per hour, which is approximately 20 cc an hour. We may need to increase maintenance fluids, although I'm concerned this may worsen her respiratory distress. -- Strict I/Os FEN/GI: Intravascular hypovolemia Hyperkalemia Acute protein calorie malnutrition- severe Maintenance fluids as above if she awakens more, we may consider clear liquids, though we will weigh risk/ benefits of nutritional deficits with aspiration risk. ICU electrolyte protocol Daily BMP Daily bowel regimen with senna and Colace Heme/ID: Leukocytosis Aspiration pneumonia Vancomycin with pharmacy dosing given healthcare association Zosyn Follow-up sensitivities on pseudomonas, H flu in sputum. Daily CBC Endocrine: Hyperglycemia of critical illness -- SSI, every 6 hours, medium scale Prophylaxis: GI Prophylaxis Protonix 40 mg IV every 12 hours DVT Prophylaxis -- SCDs Subcutaneous heparin Lines: Peripheral IVs Benites Dispo: remain in the ICU. If she does not improve, we may be forced to consider hospice options in the next few days. Tai Campbell MD Dec 01, 2016 07:46
[2016-12-01] MEDS: PANTOPRAZOLE SODIUM 40 MG VIAL IV SCH (08:32)
[2016-12-01] MEDS: methylPREDNISolone SOD SUCC 125 MG/2 ML VIAL IV PUSH SCH (08:32)
[2016-12-01] MEDS: DOCUSATE SODIUM 50 MG/SENNA 8.6 MG TAB PO SCH (08:32)
[2016-12-01] MEDS: SODIUM CHLORIDE 0.9% FLUSH 5 ML FLUSH IV FLUSH SCH (08:32)
--- NOTE | 2016-12-01 10:22 | PD.CONS ---
Consult Service Palliative Care Consult Requested By Dr. Campbell Primary Care Physician Tootie Paul MD Reason for Consultation a. To assist with evaluation and management of symptoms including:dyspnea b. To assist medical decision maker(s) with: better understanding of current medical conditions; weighing benefits/burdens of medical treatment options; making medical treatment decisions. HPI History of Present Illness Patient is a 86-year-old from with a past medical history of hypertension, anxiety, COPD, dementia, acute kidney injury, falls. She has had multiple hospital visits with the last being from 11/06/2016 to11/09/2016 for weakness, frequent falls, acute renal insufficiency, which resolved with IV fluids. She was brought in to the ER from [facility] on 2016. She was found to be confused and there were reports that patient had pinpoint pupils and there was worried that patient had an overdose. Patient was given Narcan. ER physician spoke with Eryn Vincent who reports that patient had been feeling worse over the past several days. In the ER: * Vitals pulse 99.7, pulse is 92, respirations 24, blood pressure is 140/72, pulse ox is 99 200% on nonrebreather. * WBC 17.6, hemoglobin is 10.4, hematocrit is 32.0, platelets is 392 * Sodium is 140, potassium 4.6, chloride is 101, bicarbonate is 31.4, BUNs 29, creatinine is 1.10 * Urine shows trace amount of ketones, occult blood, trace amount of leukocyte esterase, negative for nitrite. Culture was indicated * Urine culture thus far shows no growth in 24 hours. * Blood cultures show far shows no growth * Head CT shows no acute intracranial abnormality is identified. There is chronic changes including cerebral atrophy and periventricular white matter * Chest x-ray shows interval development of left volume loss with nonspecific left basilar opacity that could represent atelectasis, consolidation, and or effusion * Patient remains somnolent and cannot participate in history. She remains on BiPAP. Patient was seen by roll up helper and transferred to ICU. Building Architect evaluated patient and feel given patient's severe COPD, increasing white count, severe hypercarbic and hypoxic respiratory failure and likely this is a aspiration pneumonia. Patient is a DNR/DNI intensivists feels patient is a good candidate for conservative measures only, and feels patient is mechanically ventilated patient remained never be from mechanical ventilation if she were to be intubated. Patient was given steroids, breathing treatments, vancomycin, Zosyn. 11/30/2016: Building Architect continue to follow patient and patient remains to have a significant hypercarbic respiratory failure, somewhat more awake. Patient on physician exam was noted to be still somnolent. Patient hemodynamically is stable although patient did have an episode of oliguria which responded well to fluid bolus. Leukocytosis is worsening. Building Architect noticed systolic ejection murmur and ordered a 2-D echo. 2-D echo shows an EF of 65%. Mild aortic stenosis, mild to moderated mitral and tricuspid regurgitation, dialated right and left atrium.present. 12/01/2016. Patient was found to have improving mental status. There was nursing reports that when she was awake she kept asking for hospice. Pseudomonas cultures grow Pseudomonas species and Haemophilus species. Leukocytosis is worsening. Vancomycin and Zosyn continues. They'll follow up on sensitivities and Pseudomonas and H. influenzae cultures. Intensivists feels that patient would be an appropriate candidate for hospice. Palliative care was consulted to review goals of care On my visit pt is sleeping, easily arousable, but somonlent and goes back to sleep. Pt did complain of shortness of breath, but unable to elaborate. She says she is [facility]. When I ask her where she was born, she Function/Cognitive Trajectory Multiple hospital visits. Back and forth from the rehab. Has been falling. Poor appetite. Have to switch to pureed food. Losing wt. memory declining. Falls. Gets dyspneic. 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 Falls Back problems, joint pain Dementia Hypercholesterolemia CHF Hearing problem Past Surgical History Appendectomy Bilateral ankle pins and screw, right hip and right hand orthopedic surgery Reported Medications Ensure (Nutritional Supplements) 1 Liq Liq 1 Can PO BID Bupropion HCl 75 Mg Tab 75 Mg PO DAILY Symbicort Inh (Budesonide/Formoterol Fumarate) 160-4.5 Mcg/Act Aero 2 Puff INH Q12HR Fosamax (Alendronate Sodium) 70 Mg Tab 70 Mg PO Q7D Vitamin D3 (Cholecalciferol) 1,000 Unit Chew 1,000 Units PO DAILY Simvastatin 20 Mg Tab 20 Mg PO HS Paroxetine (Paroxetine HCl) 30 Mg Tab 30 Mg PO DAILY Acetaminophen 325 Mg Tab 650 Mg PO Q6HR PRN Ventolin Hfa 18 GM Inh (Albuterol Sulfate) 90 Mcg/Act Aer 1 Puff INH Q12HR PRN Omeprazole 20 Mg Tab 20 Mg PO DAILY Lisinopril 2.5 Mg Tab 2.5 Mg PO DAILY Florastor (Saccharomyces Boulardii) 250 Mg Cap 250 Mg PO BID Donepezil 10 Mg Tab 10 Mg PO HS Divalproex DR (Divalproex Sodium) 250 Mg Tabdr 250 Mg PO Q8HR Buspirone (Buspirone HCl) 7.5 Mg Tab 7.5 Mg PO DAILY Carvedilol 6.25 Mg Tab 6.25 Mg PO BID Current Medications Medications (Trade) Dose Ordered Sig/Mi Route Start Time Stop Time Status Last Admin Magnesium Oxide 800 mg 800 mg UNSCH PRN PO 11/29/16 12:45 Magnesium Sulfate 4 gm/Sodium Chloride 100 ml @ 50 mls/hr UNSCH PRN IV 11/29/16 12:45 Magnesium Sulfate 2 gm/Sodium Chloride 100 ml @ 50 mls/hr UNSCH PRN IV 11/29/16 12:45 Potassium Chloride 100 ml @ 50 mls/hr Q2H PRN IV 11/29/16 12:45 Potassium Chloride 100 ml @ 50 mls/hr Q2H PRN IV 11/29/16 12:45 Potassium Chloride 100 ml @ 50 mls/hr Q2H PRN IV 11/29/16 12:45 (KCl 40 Meq Premix Inj) 100 ml @ 25 mls/hr UNSCH PRN IV 11/29/16 12:45 (KCl 40 Meq/30 ml Liq) 40 meq UNSCH PRN PO/TUBE 11/29/16 12:45 (KCl 40 Meq/30 ml Liq) 40 meq UNSCH PRN PO/TUBE 11/29/16 12:45 (K-Phos) 2,000 mg Q4H PRN PO 11/29/16 12:45 Potassium Phosphate 2000 mg 2,000 mg UNSCH PRN PO/TUBE 11/29/16 12:45 Potassium Phosphate 30 mmol/ Sodium Chloride 260 ml @ 42 mls/hr UNSCH PRN IV 11/29/16 12:45 (Sodium Phosphate Inj/NS 250 ml Inj) 250 ml @ 42 mls/hr UNSCH PRN IV 11/29/16 12:45 (D50w (Vial) Inj) 25 ml UNSCH PRN IV PUSH 11/29/16 12:45 Insulin Human Regular 1 1 Q6HR SQ 11/29/16 18:00 Piperacillin Sod/ Tazobactam Sod 50 ml @ 100 mls/hr Q6H IV 11/29/16 18:00 12/01/16 06:52 Pharmacy Profile Note 0 ml @ 0 mls/hr UNSCH OTHER 11/29/16 14:00 (NS 1000 ml Inj) 1,000 ml @ 42 mls/hr [id number] IV 11/29/16 12:41 11/30/16 11:22 (NS Flush) 2 ml UNSCH PRN IV FLUSH 11/29/16 12:45 (NS Flush) 2 ml BID IV FLUSH 11/29/16 21:00 11/30/16 21:12 (Tylenol) 650 mg Q6H PRN PO 11/29/16 12:45 (Morphine Inj) 2 mg Q2H PRN IV 11/29/16 12:45 11/30/16 21:13 (Protonix Inj) 40 mg DAILY IV 11/30/16 09:00 12/01/16 08:32 (Zofran Inj) 4 mg Q6H PRN IV 11/29/16 12:45 (Mary Anne-Colace) 2 tab BID PO 11/29/16 21:00 11/30/16 21:12 (Heparin Inj) 5,000 units Q8H SQ 11/29/16 14:00 12/01/16 06:52 Miscellaneous Information 1 [id number] XX 11/29/16 12:45 11/29/16 22:25 (Chlorhexidine 2% Cloth) 3 pack Taper DAILY@04 TOP 11/30/16 04:00 11/26/17 03:59 12/01/16 00:08 (Chlorhexidine 2% Cloth) 3 pack UNSCH PRN TOP 11/29/16 12:45 Methylprednisolone Sodium Succinate 60 mg 60 mg Q12HR IV PUSH 11/29/16 21:00 12/01/16 08:32 (Vancomycin Inj/ NS 250 ml Inj) 258.5 ml @ 250 mls/hr Q36H IV 12/01/16 06:00 12/01/16 07:34 Miscellaneous Information SPECIFIC LAB TO BE DRAWN:VANCOMY... ONCE ONCE XX 12/05/16 17:45 12/05/16 17:46 Family History Family history of tobacco use Substance Use Tobacco: Yes less than half a pack per day Alcohol: No Prescription med abuse: He reportedly took too much medication Psychosocial History Recited in [facility] nursing facility. Has a POA Patient is college educated, retired. 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 HIRA is not sure, but think she orignially is from [facility] Spiritual/Cultural Factors Patient is Anabaptism Durable Power of Emergency Medcl Emt: Copy in medical record Date completed: May 31, 2014 Health Care Surrogate(s): HIRA is Eryn Vincent Physical Exam Vital Signs Date Time Temp Pulse Resp B/P Pulse Ox O2 Delivery O2 Flow Rate FiO2 12/01/16 08:20 99 Nasal Cannula 3.00 12/01/16 08:00 98.8 106 19 121/79 100 12/01/16 07:51 100 Nasal Cannula 2.00 12/01/16 07:00 86 17 118/57 100 12/01/16 06:00 89 12/01/16 06:00 92 21 117/60 100 12/01/16 05:00 92 18 113/57 100 12/01/16 04:00 92 12/01/16 04:00 99.0 96 19 119/66 100 12/01/16 04:00 99 Nasal Cannula 3.00 12/01/16 03:00 96 24 107/59 99 12/01/16 02:00 102 20 111/56 97 12/01/16 02:00 100 12/01/16 01:00 100 17 106/56 100 12/01/16 00:08 99.2 96 24 154/88 96 12/01/16 00:00 96 Nasal Cannula 4.00 12/01/16 00:00 95 11/30/16 23:00 114 19 98/53 98 11/30/16 22:00 118 25 98/56 94 11/30/16 22:00 118 11/30/16 21:02 114 29 114/75 94 11/30/16 20:00 98.0 118 28 114/64 99 11/30/16 20:00 99 Nasal Cannula 3.00 11/30/16 20:00 112 11/30/16 19:27 98 Nasal Cannula 4.00 11/30/16 19:00 96 31 134/64 98 11/30/16 18:00 96 11/30/16 18:00 96 30 135/75 94 11/30/16 18:00 97 Nasal Cannula 4.00 11/30/16 17:00 90 Nasal Cannula 6.00 11/30/16 17:00 98.4 90 28 119/66 95 11/30/16 16:52 97 Nasal Cannula 6.00 11/30/16 16:00 86 11/30/16 16:00 96 Bi-Pap 40 11/30/16 16:00 86 25 133/64 97 11/30/16 15:00 92 27 126/56 94 11/30/16 14:00 80 11/30/16 14:00 80 30 152/75 97 11/30/16 13:45 94 40 11/30/16 13:00 70 31 92/47 97 11/30/16 12:00 72 11/30/16 12:00 96 Bi-Pap 40 11/30/16 12:00 72 24 115/49 99 11/30/16 11:14 100 40 11/30/16 11:00 98.2 84 16 122/66 100 11/30/16 10:00 82 11/30/16 10:00 82 16 109/60 100 11/30/16 12/01/16 19:00 07:00 Intake Total 391 ml 730 ml Output Total 175 ml 450 ml Balance 216 ml 280 ml IV Total 391 ml 730 ml Output Urine Total 175 ml 450 ml Stool Total 0 ml Exam CONSTITUTIONAL/GENERAL: Frail Cachetic patient, mild respiratory distress SKIN: No jaundice, rashes, or lesions. Ecchymoses on upper extremities. No wounds seen anteriorly. Skin temperature appropriate. Not diaphoretic. HEAD: Atraumatic. Normocephalic. EYES: Pupils equal and round and reactive. Extraocular motions intact. No scleral icterus. ENT:Nose without bleeding or purulent drainage. Throat without visible erythema , exudates, masses, or lesions. NECK: Trachea midline. Supple, nontender. No palpable thyroid enlargement or nodularity. CARDIOVASCULAR: Regular rate and rhythm . DAVID 12/14. RESPIRATORY/CHEST: Tachypneic, Expiratory wheezing. GASTROINTESTINAL: Abdomen soft, non-tender, nondistended. No hepato-splenomegaly , or palpable masses. No guarding. Bowel sounds present. GENITOURINARY: Without palpable bladder distension. Benites catheter in place. MUSCULOSKELETAL: Extremities without clubbing, cyanosis, or edema. No joint tenderness or effusion noted. No calf tenderness. No mottling or clubbing. LYMPHATICS: No palpable cervical or supraclavicular adenopathy. NEUROLOGICAL: Somnolent but arousable. Diagnostic Tests Laboratory Laboratory Tests Test 11/29/16 11/29/16 11/29/16 11/29/16 09:55 10:50 11:27 14:25 Blood Gas Puncture Site RT RADIAL LT RADIAL Blood Gas Patient Temperature 98.6 98.6 Blood Gas HCO3 29 mmol/L 27 mmol/L (22-26) (22-26) Blood Gas Base Excess 2.9 mmol/L -0.2 mmol/L (-2-2) (-2-2) Blood Gas Oxygen Saturation 96 % (90-100) 95 % (90-100) Arterial Blood pH 7.29 7.22 (7.380-7.420) (7.380-7.420) Arterial Blood Partial 62 mmHG (38-42) 68 mmHG (38-42) Pressure CO2 Arterial Blood Partial 108 mmHG 109 mmHG Pressure O2 (61-120) (61-120) Arterial Blood Oxygen Content 14.0 Vol % 12.0 Vol % (12.0-20.0) (12.0-20.0) Arterial Blood 1.6 % (0-4) 1.4 % (0-4) Carboxyhemoglobin Arterial Blood Methemoglobin 1.2 % (0-2) 1.1 % (0-2) Blood Gas Hemoglobin 10.3 G/DL 8.8 G/DL (12.0-16.0) (12.0-16.0) Oxygen Delivery Device NRB MASK BIPAP Blood Gas Liter Flow 15 L/M White Blood Count 17.6 TH/MM3 (4.0-11.0) Red Blood Count 3.75 MIL/MM3 (4.00-5.30) Hemoglobin 10.4 GM/DL (11.6-15.3) Hematocrit 32.0 % (35.0-46.0) Mean Corpuscular Volume 85.5 FL (80.0-100.0) Mean Corpuscular Hemoglobin 27.7 PG (27.0-34.0) Mean Corpuscular Hemoglobin 32.4 % Concent (32.0-36.0) Red Cell Distribution Width 14.9 % (11.6-17.2) Platelet Count 392 TH/MM3 (150-450) Mean Platelet Volume 7.7 FL (7.0-11.0) Neutrophils (%) (Auto) 81.5 % (16.0-70.0) Lymphocytes (%) (Auto) 5.9 % (9.0-44.0) Monocytes (%) (Auto) 11.8 % (0.0-8.0) Eosinophils (%) (Auto) 0.6 % (0.0-4.0) Basophils (%) (Auto) 0.2 % (0.0-2.0) Neutrophils # (Auto) 14.4 TH/MM3 (1.8-7.7) Lymphocytes # (Auto) 1.0 TH/MM3 (1.0-4.8) Monocytes # (Auto) 2.1 TH/MM3 (0-0.9) Eosinophils # (Auto) 0.1 TH/MM3 (0-0.4) Basophils # (Auto) 0.0 TH/MM3 (0-0.2) CBC Comment DIFF FINAL Differential Comment Prothrombin Time 11.8 SEC (9.8-11.6) Prothromb Time International 1.1 RATIO Ratio Activated Partial 32.0 SEC Thromboplast Time (24.3-30.1) Sodium Level 140 MEQ/L (136-145) Potassium Level 4.6 MEQ/L (3.5-5.1) Chloride Level 101 MEQ/L (98-107) Carbon Dioxide Level 31.4 MEQ/L (21.0-32.0) Anion Gap 8 MEQ/L (5-15) Blood Urea Nitrogen 29 MG/DL (7-18) Creatinine 1.10 MG/DL (0.50-1.00) Estimat Glomerular Filtration 47 ML/MIN (>89) Rate Random Glucose 71 MG/DL (74-106) Lactic Acid Level 1.0 mmol/L (0.4-2.0) Calcium Level 8.6 MG/DL (8.5-10.1) Total Bilirubin 0.2 MG/DL (0.2-1.0) Aspartate Amino Transf 7 U/L (15-37) (AST/SGOT) Alanine Aminotransferase LESS THAN 6 (ALT/SGPT) U/L (10-53) Alkaline Phosphatase 93 U/L (45-117) Troponin I 0.06 NG/ML (0.02-0.05) Total Protein 6.8 GM/DL (6.4-8.2) Albumin 2.0 GM/DL (3.4-5.0) Lipase 78 U/L (73-393) Blood Gas Ventilator Setting EPAP 5/IPAP 10 Blood Gas Inspired Oxygen 50 % Urine Collection Type CLEAN CATCH Urine Color YELLOW (YELLW/STRAW) Urine Turbidity CLEAR (CLEAR) Urine pH 5.5 (5.0-8.5) Urine Specific [place] 1.023 (1.002-1.035) Urine Protein TRACE mg/dL (NEG-TRACE) Urine Glucose (UA) NEG mg/dL (NEG) Urine Ketones TRACE mg/dL (NEG) Urine Occult Blood SMALL (NEG) Urine Nitrite NEG (NEG) Urine Bilirubin NEG (NEG) Urine Leukocyte Esterase TRACE (NEG) Urine RBC 10-14 /hpf (0-3) Urine WBC 9-14 /hpf (0-5) Urine Squamous Epithelial > 8 /hpf (0-5) Cells Urine Bacteria MOD /hpf (NONE) Microscopic Urinalysis Comment CULTURE INDICATED Urine Collection Time 14:25 Test 11/29/16 11/29/16 11/29/16 11/30/16 16:45 19:22 20:07 05:17 Nasal Screen MRSA (PCR) NEGATIVE (NEGATIVE) Blood Gas Puncture Site RT BRACHIAL Blood Gas Patient Temperature 37.0 Blood Gas HCO3 24 mmol/L (22-26) Blood Gas Base Excess -2.6 mmol/L (-2-2) Blood Gas Oxygen Saturation 97 % (90-100) Arterial Blood pH 7.23 (7.380-7.420) Arterial Blood Partial 59 mmHg (38-42) Pressure CO2 Arterial Blood Partial 136 mmHg Pressure O2 (61-120) Arterial Blood Oxygen Content 13.3 Vol % (12.0-20.0) Arterial Blood 1.0 % (0-4) Carboxyhemoglobin Arterial Blood Methemoglobin 0.9 % (0-2) Blood Gas Hemoglobin 9.6 G/DL (12.0-16.0) Oxygen Delivery Device BIPAP Blood Gas Ventilator Setting IPAP15/EPAP5 Blood Gas Inspired Oxygen 50 % Troponin I 0.04 NG/ML 0.04 NG/ML (0.02-0.05) (0.02-0.05) White Blood Count 21.1 TH/MM3 (4.0-11.0) Red Blood Count 3.43 MIL/MM3 (4.00-5.30) Hemoglobin 9.6 GM/DL (11.6-15.3) Hematocrit 29.3 % (35.0-46.0) Mean Corpuscular Volume 85.2 FL (80.0-100.0) Mean Corpuscular Hemoglobin 27.9 PG (27.0-34.0) Mean Corpuscular Hemoglobin 32.8 % Concent (32.0-36.0) Red Cell Distribution Width 14.8 % (11.6-17.2) Platelet Count 417 TH/MM3 (150-450) Mean Platelet Volume 8.2 FL (7.0-11.0) Sodium Level 143 MEQ/L (136-145) Potassium Level 4.5 MEQ/L (3.5-5.1) Chloride Level 108 MEQ/L (98-107) Carbon Dioxide Level 28.2 MEQ/L (21.0-32.0) Anion Gap 7 MEQ/L (5-15) Blood Urea Nitrogen 33 MG/DL (7-18) Creatinine 0.97 MG/DL (0.50-1.00) Estimat Glomerular Filtration 55 ML/MIN (>89) Rate Random Glucose 111 MG/DL (74-106) Calcium Level 7.8 MG/DL (8.5-10.1) Test 11/30/16 11/30/16 11/30/16 11/30/16 05:38 09:40 14:02 16:35 Blood Gas Puncture Site RT BRACHIAL RT RADIAL RT BRACHIAL Blood Gas Patient Temperature 37.0 37.0 37.0 Blood Gas HCO3 24 mmol/L 25 mmol/L 24 mmol/L (22-26) (22-26) (22-26) Blood Gas Base Excess -2.6 mmol/L -2.3 mmol/L -1.1 mmol/L (-2-2) (-2-2) (-2-2) Blood Gas Oxygen Saturation 95 % (90-100) 97 % (90-100) 90 % (90-100) Arterial Blood pH 7.21 7.19 7.34 (7.380-7.420) (7.380-7.420) (7.380-7.420) Arterial Blood Partial 64 mmHg (38-42) 68 mmHg (38-42) 46 mmHg (38-42) Pressure CO2 Arterial Blood Partial 92 mmHg 140 mmHg 57 mmHg Pressure O2 (61-120) (61-120) (61-120) Arterial Blood Oxygen Content 12.4 Vol % 13.3 Vol % 11.6 Vol % (12.0-20.0) (12.0-20.0) (12.0-20.0) Arterial Blood 0.9 % (0-4) 0.8 % (0-4) 1.2 % (0-4) Carboxyhemoglobin Arterial Blood Methemoglobin 0.9 % (0-2) 0.7 % (0-2) 0.7 % (0-2) Blood Gas Hemoglobin 9.2 G/DL 9.5 G/DL 9.1 G/DL (12.0-16.0) (12.0-16.0) (12.0-16.0) Oxygen Delivery Device BIPAP BIPAP BIPAP Blood Gas Ventilator Setting IPAP15/EPAP5 IPAP 15/EPAP5 IPAP 15/EPAP 5 Blood Gas Inspired Oxygen 40 % 40 % 40 % Sodium Level 145 MEQ/L (136-145) Potassium Level 5.0 MEQ/L (3.5-5.1) Chloride Level 109 MEQ/L (98-107) Carbon Dioxide Level 26.3 MEQ/L (21.0-32.0) Anion Gap 10 MEQ/L (5-15) Blood Urea Nitrogen 37 MG/DL (7-18) Creatinine 0.99 MG/DL (0.50-1.00) Estimat Glomerular Filtration 53 ML/MIN (>89) Rate Random Glucose 119 MG/DL (74-106) Calcium Level 8.1 MG/DL (8.5-10.1) Test 11/30/16 12/01/16 20:53 05:09 Sodium Level 145 MEQ/L 147 MEQ/L (136-145) (136-145) Potassium Level 4.1 MEQ/L 4.3 MEQ/L (3.5-5.1) (3.5-5.1) Chloride Level 110 MEQ/L 112 MEQ/L (98-107) (98-107) Carbon Dioxide Level 25.5 MEQ/L 31.7 MEQ/L (21.0-32.0) (21.0-32.0) Anion Gap 10 MEQ/L (5-15) 3 MEQ/L (5-15) Blood Urea Nitrogen 40 MG/DL (7-18) 41 MG/DL (7-18) Creatinine 1.10 MG/DL 1.00 MG/DL (0.50-1.00) (0.50-1.00) Estimat Glomerular Filtration 47 ML/MIN (>89) 53 ML/MIN (>89) Rate Random Glucose 128 MG/DL 126 MG/DL (74-106) (74-106) Calcium Level 8.1 MG/DL 8.1 MG/DL (8.5-10.1) (8.5-10.1) White Blood Count 18.6 TH/MM3 (4.0-11.0) Red Blood Count 3.37 MIL/MM3 (4.00-5.30) Hemoglobin 9.0 GM/DL (11.6-15.3) Hematocrit 28.6 % (35.0-46.0) Mean Corpuscular Volume 84.9 FL (80.0-100.0) Mean Corpuscular Hemoglobin 26.8 PG (27.0-34.0) Mean Corpuscular Hemoglobin 31.6 % Concent (32.0-36.0) Red Cell Distribution Width 14.7 % (11.6-17.2) Platelet Count 475 TH/MM3 (150-450) Mean Platelet Volume 7.6 FL (7.0-11.0) Result Diagram: 12/01/16 0509 12/01/16 0509 Microbiology Microbiology Date/Time Procedure Status Source Growth 11/29/16 10:20 Gram Stain - Final Resulted Sputum Oral Tracheal Aspirate 11/29/16 10:20 Sputum Culture - Preliminary Resulted Pseudomonas Species Haemophilus Species 11/29/16 10:45 Aerobic Blood Culture - Preliminary Resulted Blood Peripheral NO GROWTH IN 1 DAY 11/29/16 10:45 Anaerobic Blood Culture - Preliminary Resulted Blood Peripheral NO GROWTH IN 1 DAY 11/29/16 11:02 Influenza Types A,B Antigen (PURA) - Final Complete Nasal Washing NEGATIVE FOR FLU A AND B ANTIGEN.... 11/29/16 11:15 Aerobic Blood Culture - Preliminary Resulted Blood Peripheral NO GROWTH IN 1 DAY 11/29/16 11:15 Anaerobic Blood Culture - Preliminary Resulted Blood Peripheral NO GROWTH IN 1 DAY 11/29/16 14:25 Urine Culture - Preliminary Resulted Urine Clean Catch NO GROWTH IN 24 HOURS. Imaging Microbiology Date/Time Procedure Status Source Growth 11/29/16 10:20 Gram Stain - Final Resulted Sputum Oral Tracheal Aspirate 11/29/16 10:20 Sputum Culture - Preliminary Resulted Pseudomonas Species Haemophilus Species 11/29/16 10:45 Aerobic Blood Culture - Preliminary Resulted Blood Peripheral NO GROWTH IN 1 DAY 11/29/16 10:45 Anaerobic Blood Culture - Preliminary Resulted Blood Peripheral NO GROWTH IN 1 DAY 11/29/16 11:02 Influenza Types A,B Antigen (PURA) - Final Complete Nasal Washing NEGATIVE FOR FLU A AND B ANTIGEN.... 11/29/16 11:15 Aerobic Blood Culture - Preliminary Resulted Blood Peripheral NO GROWTH IN 1 DAY 11/29/16 11:15 Anaerobic Blood Culture - Preliminary Resulted Blood Peripheral NO GROWTH IN 1 DAY 11/29/16 14:25 Urine Culture - Preliminary Resulted Urine Clean Catch NO GROWTH IN 24 HOURS. Patient/Family Conference Present at Family Conference: Eryn Vincent Family Conference Time (mins): 35 Family Conference Location: Telephone Issues Discussed: * Palliative care role, purpose, approach * Additional medical, psychosocial, and spiritual history * Patients general health, functional status, and cognitive changes in the months leading up to the current hospitalization * Patient/family understanding of the current medical problems * Patient/family understanding of prognosis * Patients goals of care as best understood from advance directives and/or conversations and/or values * Current medical treatment options and benefits/burdens of those options * Likely scenarios comparing ongoing aggressive care with a transition to comfort measures only * Questions answered to the best of my ability * Palliative care contact information provided Assessment and Plan Disease Oriented Problem List: (1) COPD (chronic obstructive pulmonary disease) (2) Acute kidney injury Comment: resolved (3) Frequent falls (4) Pneumonia Comment: likely aspiration. Continue to have consolidation at the left lung bases. (5) Hypercapnic respiratory failure (6) Dementia (7) Leukocytosis Comment: remains significant. (8) Altered mental status, unspecified Comment: more awake then prior to the ER. Symptom Scale: Pertinent Non-Medical Issues Psychosocial: Spiritual: Legal: Ethical issues impacting care: Important Contacts Eryn Vincent [phone] Prognosis 86-year-old with significant history of COPD, falls, weakness, and dementia. Patient has aspiration pneumonia is in the ICU with respiratory failure. Patient also was found to have mild aortic stenosis and dilated atriums. Patient is cachectic, leukocytosis remains despite aggressive therapy. Is appropriate for hospice of goals of care as in line with hospice philosophy. Code Status: No Code Plan == Capacity- pt has no capacity to make decisions on my exam. Per POA, mentation fluctuates at times, but she has stated her memory has been getting poorer and poorer since April of 2016. == POA: Eryn Vicnent. == Goals of care. Pt at her time of being awake had expressed to nursing desire for hospice. This was conveyed to POA. Pt's hospitalizations, general decline, have also been reviewed. Pt's POA will come in this afternoon, and amenable to meet with Hospice. She say she will talk with patient, if patient is more alert this afternoon, and want to go to hospice right away, she will acquiesce. Otherwise likely one more day of antibiotic therapy. POA understand pt likely will get into respiratory distress again and decline. Hospice consult will be placed == Dyspnea. continue nebs, treatment. == Pain- hx of back and joint pain, although pt did not complain of pain on my visit. == Palliative care will continue to follow. Time Spent Total Floor Time (mins): 75 Face to Face Time (mins): 41 >50% Counseling/Coord of Care: Yes Thank you for the opportunity to participate in the care of Ms. Messina. Attestation To help prompt me to consider important information that might be impacting today's encounter and assessment, information from prior notes written by myself or my colleagues may have been "brought forward" into today's note. My signature on this note, however, is an attestation that I personally performed the exam, history, and/or decision-making noted today, and, unless otherwise indicated, the interactions with patient, family, and staff as well as the review of records all occurred today. I also attest that the listed assessment and stated plan reflect my best clinical judgment today based on the combination of historical information, prior notes, and today's exam/ interactions. When time spent is documented, it refers only to time spent today by the signer, or if indicated, combined time spent today by collaborating physician/nurse practitioner. Phong Mccabe MD Dec 01, 2016 10:22
[2016-12-01] MEDS: SODIUM CHLOR 0.9% 1000 ML INJ 1,000 ML IV SCH (12:10)
[2016-12-01] MEDS: MORPHINE SULFATE 4 MG/ML INJ IV PRN (17:27)
[2016-12-05] MEDS ORDERED: VANCOMYCIN TROUGH XX ONE (17:45)
== END 2016-12-01 18:40 | disposition hospice, inpatient (51) | DRG 177 ==
LOC: PHED 09:53 → PHEDA 12:41 → PHICU 16:35
PROVIDERS: ADMIT Internal Medicine Critical Care Medicine; ATTEND Internal Medicine Critical Care Medicine
PROC: 5A09457 Assistance with Respiratory Ventilation, 24-96 Consecutive Hours, Continuous Positive Airway Pressure (ICD-10-PCS; principal; 2016-11-29)
DX: J69.0 Pneumonitis due to inhalation of food and vomit (principal); G93.41 Metabolic encephalopathy; J96.21 Acute and chronic respiratory failure with hypoxia; E43 Unspecified severe protein-calorie malnutrition; N17.9 Acute kidney failure, unspecified; E86.1 Hypovolemia; E87.5 Hyperkalemia; F03.90 Unspecified dementia, unspecified severity, without behavioral disturbance, psychotic disturbance, mood disturbance, and anxiety; J96.22 Acute and chronic respiratory failure with hypercapnia; Z68.1 Body mass index [BMI] 19.9 or less, adult; J44.9 Chronic obstructive pulmonary disease, unspecified; Z66 Do not resuscitate; Z51.5 Encounter for palliative care; R73.9 Hyperglycemia, unspecified; I10 Essential (primary) hypertension; E78.00 Pure hypercholesterolemia, unspecified; I35.0 Nonrheumatic aortic (valve) stenosis; F17.210 Nicotine dependence, cigarettes, uncomplicated; Z91.81 History of falling
CPT/HCPCS: 36600; 70450; 71010; 80048; 80053; 81001; 82805; 82948; 83605; 83690; 84484; 85025; 85027; 85610; 85730; 87040; 87070; 87086; 87205; 87641; 87804; 93005; 93306; 94002; 94003; 94640; 94664; 94667; 96361; 96365; 96375; C9113; J1644; J2270; J2310; J2543; J2930; J3370; J7030; J7050